=== PATIENT | male | born 1935 | race Caucasian/White ===

== ENCOUNTER 2016-12-02 19:32 | Emergency (ER) | payer MEDICARE, BC, OTHER ==
--- NOTE | 2016-12-02 19:43 | EDM.PDOC ---
ED HISTORY OF PRESENT ILLNESS - General Chief Complaint: Respiratory Problem Stated Complaint: SOB DIARRHEA Time Seen by Provider: 12/02/16 19:41 - History of Present Illness INITIAL COMMENTS - FREE TEXT/NARRATIVE: 81-year-old male presents emergency room with increasing shortness of breath and some diarrhea. This started basically yesterday morning. Patient has a history of COPD. He is not aware of any fevers or chills has had no nausea or vomiting he has had 3-4 loose stools yesterday and again today. Beyond this he has no other complaints at this time. He has not had any chest pain or chest pressure he believes his cough is productive but having a hard time bringing stuff up. No nausea or vomiting. - Related Data Allergies/ADRs: Allergies Allergy/AdvReac Type Severity Reaction Status Date / Time No Known Allergies Allergy Verified 12/02/16 19:44 Home Meds: Home Meds Allopurinol [Zyloprim] 300 mg PO DAILY 12/02/16 [History] Aspirin [Lo-Dose Aspirin EC] 81 mg PO DAILY 12/02/16 [History] Cholecalciferol (Vitamin D3) [Vitamin D3] 1,000 unit PO DAILY 12/02/16 [History] Doxycycline [Vibramycin] 100 mg PO BID #13 cap 12/02/16 [Rx] Losartan [Cozaar] 100 mg PO DAILY 12/02/16 [History] Metoprolol Succinate [Toprol XL 100mg] 100 mg PO BID 12/02/16 [History] Omeprazole 20 mg PO DAILY 12/02/16 [History] Oseltamivir [Tamiflu] 75 mg PO DAILY #4 cap 12/02/16 [Rx] atorvaSTATin [Lipitor] 40 mg PO BEDTIME 12/02/16 [History] predniSONE [Prednisone] 40 mg PO Q24H #8 tablet 12/02/16 [Rx] ED ROS GENERAL - Review of Systems Review Of Systems: See Below Constitutional: Reports: no symptoms. Denies: fever, chills HEENT: Reports: No symptoms Respiratory: Reports: shortness of breath, cough. Denies: sputum Cardiovascular: Reports: No symptoms, Dyspnea on exertion. Denies: Chest pain GI/Abdominal: Reports: Diarrhea. Denies: Abdominal pain, Constipation, Nausea, Vomiting : Reports: no symptoms Skin: Reports: no symptoms Neurological: Reports: no symptoms ED EXAM, GENERAL - Physical Exam Exam: See Below Exam Limited By: No limitations General Appearance: alert, no apparent distress Eye Exam: bilateral eye: normal inspection Head: atraumatic, normocephalic Neck: normal inspection, supple, non-tender, full range of motion Respiratory/Chest: no respiratory distress, lungs clear, decreased breath sounds Cardiovascular: regular rate, rhythm, no edema, no murmur GI/Abdominal: normal bowel sounds, soft, non tender, no organomegaly, no distention, no abnormal bruit, no mass Back Exam: normal inspection. No: CVA tenderness (L), CVA tenderness (R) Extremities: normal inspection, no pedal edema EKG INTERPRETATION EKG Date: 12/02/16 Rhythm: NSR [place]: normal P-wave: present QRS: other (nondiagnostic ST depression lateral) ST-T: normal QT: normal Comparison: NA - no prior EKG EKG Interpretation Comments: Borderline EKG. No comparison. No acute changes on chest x-ray. Patient received 2 breathing treatments and this helped significantly he was also given 80 mg of Solu-Medrol with his underlying COPD. He was instructed on use of an albuterol MDI and did well with this and he wants to go home. Course - Vital Signs Last Recorded V/S: Last Vital Signs Temp 36.3 C 12/02/16 19:39 Pulse 92 12/02/16 19:39 Resp 24 H 12/02/16 19:39 BP 177/144 H 12/02/16 19:39 Pulse Ox 99 12/02/16 20:46 - Orders/Labs/Meds Orders: Active Orders 24 hr Category Date Time Status EKG Documentation Completion [RC] STAT Care 12/02/16 19:55 Active RT Aerosol Therapy [RC] ASDIRECTED Care 12/02/16 19:54 Active RT Aerosol Therapy [RC] ASDIRECTED Care 12/02/16 20:46 Active RT Post Treatment Assessment [RC] Click To Edit Care 12/02/16 21:31 Active RT Pre-Treatment Assessment [RC] Click To Edit Care 12/02/16 21:31 Active Chest 1V Frontal [CR] Stat Exams 12/02/16 19:54 Taken Lactated Ringers [Ringers, Lactated] 1,000 ml Med 12/02/16 20:00 Active IV ASDIRECTED Medication Orders Lactated Ringer's (Ringers, Lactated) 1,000 mls @ 125 mls/hr IV ASDIRECTED VICKY Last Admin: 12/02/16 20:17 Dose: 125 mls/hr Labs: Laboratory Tests 12/02/16 12/02/16 12/02/16 Range/Units 20:04 20:04 20:04 WBC 9.40 H (4.23-9.07) K/mm3 RBC 3.57 L (4.63-6.08) M/mm3 Hgb 11.6 L (13.7-17.5) gm/L Hct 35.0 L (40.1-51.0) % MCV 98.0 H (79.0-92.2) fl MCH 32.5 H (25.7-32.2) pg MCHC 33.1 (32.2-35.5) g/dl RDW Std Deviation 48.1 H (35.1-43.9) fL Plt Count 155 L (163-337) K/mm3 MPV 11.8 (9.4-12.3) fl Neutrophils % (Manual) 91 H (40-60) % Band Neutrophils % 0 (0-10) % Lymphocytes % (Manual) 4 L (20-40) % Atypical Lymphs % 0 % Monocytes % (Manual) 5 (2-10) % Eosinophils % (Manual) 0 L (0.8-7.0) % Basophils % (Manual) 0 L (0.2-1.2) Platelet Estimate Adequate Plt Morphology Comment See note RBC Morph Comment Normal Sodium 134 L (136-145) mEq/L Potassium 4.4 (3.5-5.1) mEq/L Chloride 100 (98-107) mEq/L Carbon Dioxide 21 (21-32) mEq/L Anion Gap 17.4 H (5-15) BUN 41 H (7-18) mg/dL Creatinine 1.6 H (0.7-1.3) mg/dL Est Cr Clr Drug Dosing 28.65 mL/min Estimated GFR (MDRD) 42 (>60) mL/min BUN/Creatinine Ratio 25.6 H (14-18) Glucose 119 H (83-115) mg/dL Calcium 9.1 (8.5-10.1) mg/dL Total Bilirubin 0.3 (0.2-1.0) mg/dL AST 47 H (15-37) U/L ALT 43 (16-63) U/L Alkaline Phosphatase 73 (46-116) U/L B-Natriuretic Peptide 834 H (0-100) pg/mL Total Protein 7.3 (6.4-8.2) g/dl Albumin 3.7 (3.4-5.0) g/dl Globulin 3.6 gm/dL Albumin/Globulin Ratio 1.0 (1-2) Urine Color (Yellow) Urine Appearance (Clear) Urine pH (5.0-8.0) Ur Specific [place] (1.005-1.030) Urine Protein (Negative) Urine Glucose (UA) (Negative) Urine Ketones (Negative) Urine Occult Blood (Negative) Urine Nitrite (Negative) Urine Bilirubin (Negative) Urine Urobilinogen (0.2-1.0) Ur Leukocyte Esterase (Negative) Urine RBC (0-5) /hpf Urine WBC (0-5) /hpf Ur Epithelial Cells (0-5) /hpf Urine Bacteria (FEW) /hpf Urine Mucus (FEW) /hpf 12/02/16 Range/Units 20:50 WBC (4.23-9.07) K/mm3 RBC (4.63-6.08) M/mm3 Hgb (13.7-17.5) gm/L Hct (40.1-51.0) % MCV (79.0-92.2) fl MCH (25.7-32.2) pg MCHC (32.2-35.5) g/dl RDW Std Deviation (35.1-43.9) fL Plt Count (163-337) K/mm3 MPV (9.4-12.3) fl Neutrophils % (Manual) (40-60) % Band Neutrophils % (0-10) % Lymphocytes % (Manual) (20-40) % Atypical Lymphs % % Monocytes % (Manual) (2-10) % Eosinophils % (Manual) (0.8-7.0) % Basophils % (Manual) (0.2-1.2) Platelet Estimate Plt Morphology Comment RBC Morph Comment Sodium (136-145) mEq/L Potassium (3.5-5.1) mEq/L Chloride (98-107) mEq/L Carbon Dioxide (21-32) mEq/L Anion Gap (5-15) BUN (7-18) mg/dL Creatinine (0.7-1.3) mg/dL Est Cr Clr Drug Dosing mL/min Estimated GFR (MDRD) (>60) mL/min BUN/Creatinine Ratio (14-18) Glucose (83-115) mg/dL Calcium (8.5-10.1) mg/dL Total Bilirubin (0.2-1.0) mg/dL AST (15-37) U/L ALT (16-63) U/L Alkaline Phosphatase (46-116) U/L B-Natriuretic Peptide (0-100) pg/mL Total Protein (6.4-8.2) g/dl Albumin (3.4-5.0) g/dl Globulin gm/dL Albumin/Globulin Ratio (1-2) Urine Color Yellow (Yellow) Urine Appearance Clear (Clear) Urine pH 6.0 (5.0-8.0) Ur Specific [place] 1.025 (1.005-1.030) Urine Protein 2+ H (Negative) Urine Glucose (UA) Negative (Negative) Urine Ketones Negative (Negative) Urine Occult Blood 2+ H (Negative) Urine Nitrite Negative (Negative) Urine Bilirubin Negative (Negative) Urine Urobilinogen 0.2 (0.2-1.0) Ur Leukocyte Esterase Negative (Negative) Urine RBC 0-5 (0-5) /hpf Urine WBC Not seen (0-5) /hpf Ur Epithelial Cells 0-5 (0-5) /hpf Urine Bacteria Rare (FEW) /hpf Urine Mucus Few (FEW) /hpf Meds: Medications Generic Name Dose Route Start Last Admin Trade Name Freq PRN Reason Stop Dose Admin Lactated Ringer's 1,000 mls @ 125 mls/hr 12/02/16 20:00 12/02/16 20:17 Ringers, Lactated IV 125 mls/hr ASDIRECTED VICKY Administration Discontinued Medications Generic Name Dose Route Start Last Admin Trade Name Freq PRN Reason Stop Dose Admin Albuterol 6 gm 12/02/16 21:31 12/02/16 21:51 Proventil Hfa INH 12/02/16 21:32 2 puff ONETIME ONE Administration Albuterol/Ipratropium 3 ml 12/02/16 19:53 12/02/16 20:05 Duoneb 3.0-0.5 Mg/3 Ml NEB 12/02/16 19:54 3 ml ONETIME ONE Administration Albuterol/Ipratropium 3 ml 12/02/16 20:45 12/02/16 21:06 Duoneb 3.0-0.5 Mg/3 Ml NEB 12/02/16 20:46 3 ml ONETIME ONE Administration Methylprednisolone Sodium Succinate 80 mg 12/02/16 20:45 12/02/16 20:58 Solu-Medrol IVPUSH 12/02/16 20:46 80 mg ONETIME ONE Administration Oseltamivir Phosphate 75 mg 12/02/16 20:45 12/02/16 20:58 Tamiflu PO 12/02/16 20:46 75 mg ONETIME ONE Administration - Re-Assessments/Exams Free Text/Narrative Re-Assessment/Exam: 12/02/16 20:47 chest X. ray is negative for acute cardiopulmonary changes he has some age- related changes. He is positive for influenza A. due to his renal insufficiency he will be started on 75 mg once daily for 5 days. He had a modest if any improvement from the DuoNeb therapy this will be repeated and he'll receive 80 mg of Solu-Medrol.he has been started on Tamiflu 75 mg daily because of his renal insufficiency he'll stay on daily dosing. We will also add doxycycline 100 mg twice a day for 7 days. He has been instructed on the use of an albuterol MDI and believes this is helping, he will take 2 puffs every 4 hours while awake. Departure - Departure Time of Disposition: 22:50 Disposition: Home, Self-Care 01 Clinical Impression: Influenza A, Bronchitis, COPD exacerbation Prescriptions: Doxycycline [Vibramycin] 100 mg PO BID #13 cap Oseltamivir [Tamiflu] 75 mg PO DAILY #4 cap predniSONE [Prednisone] 40 mg PO Q24H #8 tablet Forms: ED Department Discharge Additional Instructions: Return to emergency room if any questions or problems return with any worsening symptoms. It looks like you have an early case of the flu with a significant cough. You've been started on Tamiflu this is the flu medication you will take this once daily in the evenings until all gone. You had been started on doxycycline this is an antibiotic take it twice daily until all gone your first dose was given in the emergency room start tomorrow morning. You have been started on a steroid continue prednisone 40 mg every morning until gone. In the emergency room your given a albuterol inhaler use this 2 puffs every 4 hours while awake. Followup in the clinic in 2-3 days if not significantly better. [phone] - My Orders Last 24 Hours: My Active Orders 12/02/16 19:54 RT Aerosol Therapy [RC] ASDIRECTED Chest 1V Frontal [CR] Stat 12/02/16 19:55 EKG Documentation Completion [RC] STAT 12/02/16 20:00 Lactated Ringers [Ringers, Lactated] 1,000 ml IV ASDIRECTED 12/02/16 20:46 RT Aerosol Therapy [RC] ASDIRECTED 12/02/16 21:31 RT Post Treatment Assessment [RC] Click To Edit RT Pre-Treatment Assessment [RC] Click To Edit - Assessment/Plan Last 24 Hours: My Active Orders 12/02/16 19:54 RT Aerosol Therapy [RC] ASDIRECTED Chest 1V Frontal [CR] Stat 12/02/16 19:55 EKG Documentation Completion [RC] STAT 12/02/16 20:00 Lactated Ringers [Ringers, Lactated] 1,000 ml IV ASDIRECTED 12/02/16 20:46 RT Aerosol Therapy [RC] ASDIRECTED 12/02/16 21:31 RT Post Treatment Assessment [RC] Click To Edit RT Pre-Treatment Assessment [RC] Click To Edit
[2016-12-02 19:44] VITALS: BP 177/144
[2016-12-02] MEDS ORDERED: Albuterol/Ipratropium 3.0-0.5 MG/3 ML Neb Soln NEB ONE ×2 (19:53→20:45)
[2016-12-02] MEDS ORDERED: Lactated Ringers 1,000 ML IV SCH (20:00)
[2016-12-02] MEDS ORDERED: methylPREDNISolone Sodium Succinate 125 MG/2 ML SDV IVPUSH ONE (20:45)
[2016-12-02] MEDS ORDERED: Oseltamivir 75 MG Cap PO ONE (20:45)
[2016-12-02] MEDS ORDERED: Albuterol 6.7 GM Inhaler INH ONE (21:31)
[2016-12-02] MEDS ORDERED: Doxycycline 100 MG Cap PO ONE (22:53)
--- NOTE | 2016-12-03 08:08 | CR ---
Chest: Portable view of the chest was obtained. Comparison: No previous study. Heart size and mediastinum are normal. Lungs are clear with no acute infiltrates. Previous sternotomy is noted. Previous right shoulder surgery is noted. Impression: 1. Nothing acute is identified on portable chest x-ray. Diagnostic code #2
== END 2016-12-02 23:22 | disposition home or self-care (01) ==
LOC: JD.ED 19:32
DX: J44.0 Chronic obstructive pulmonary disease with (acute) lower respiratory infection (principal); J20.9 Acute bronchitis, unspecified; J44.1 Chronic obstructive pulmonary disease with (acute) exacerbation; J11.1 Influenza due to unidentified influenza virus with other respiratory manifestations; R19.7 Diarrhea, unspecified; Z79.82 Long term (current) use of aspirin; Z79.899 Other long term (current) drug therapy
CPT/HCPCS: 36415; 71010; 80053; 81001; 83880; 85025; 87804; 93005; 94640; 94664; 96361; 96374; 99285; A9270; J2930; J7120; 99284

== ENCOUNTER 2016-12-06 09:00 | Inpatient (IN) | payer MEDICARE, BC, OTHER ==
--- NOTE | 2016-12-06 09:54 | EDM.PDOC ---
ED UPPER BACK/NECK PAIN/INJURY - General Chief Complaint: Back Pain or Injury Stated Complaint: LOWER BACK PAIN, NOT SLEEPING Time Seen by Provider: 12/06/16 09:43 Source of Information: Reports: Patient, Family (daughter) History Limitations: Reports: Altered mental status (confused and disoriented) - History of Present Illness INITIAL COMMENTS - FREE TEXT/NARRATIVE: 81-year-old male presents to the ED in the integument of his daughter who cares for him. Patient was in the ED on December 02 and was diagnosed with influenza type A. He has COPD and mild dementia. Daughter comments that she's been extremely confused and hallucinating the last 3 days. He's been found outside the home twice out at nighttime. Is oriented to person place and time. He has completed the Tamiflu which was 11 tablet of 75 mg date daily due to his renal disease. His steroids were withheld this morning. He was placed on 40 mg daily. She appreciates that he is having increased coughing increased trouble breathing. O2 sats were 86% upon arrival and into the 95% on 3 L by nasal cannula. Still coughing up but not bringing much phlegm. Has had very little to eat or drink the last few days. Still running a low-grade fever but better than it was. He is complaining of low back pain is unclear if he may have fallen while he was outside of the home the last few days. Symptom Onset Date: 12/02/16 (seemed to get worse after starting Tamiflu tablets.) Timing/Duration: Reports: Day(s):, Constant, Getting worse, Gradual onset Location: Reports: lower (diffuse low back pain but is nonspecific as to where her or what hurts.) Quality: Reports: Other (low-grade fever.) Severity: moderate Place of Occurrence: home (moderate to marked confusion.) Improves with: Reports: None Worsens with: Reports: None, Movement (more short of breath on exertion.) Context: Denies: lifting, bending, fall, MVC, trauma, chronic pain/injury, sports injury, other Associated Symptoms: Reports: Cough, Difficulty walking ( nothing greater than 102.), Fever/chills (initially complained of headachefever and chills initially but), Headache, Loss of appetite, Malaise, Shortness of breath, Weakness. 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, Breathing treatments (he was started on albuterol metered-dose inhaler but is difficult to ascertain if it is beneficial or not as he has difficulty coordinating the inhaler) - Related Data Allergies/ADRs: Allergies Allergy/AdvReac Type Severity Reaction Status Date / Time tramadol Allergy Hallucinati Verified 12/06/16 09:28 ons Home Meds: Home Meds Allopurinol [Zyloprim] 300 mg PO DAILY 12/02/16 [History] Aspirin [Lo-Dose Aspirin EC] 81 mg PO DAILY 12/02/16 [History] Cholecalciferol (Vitamin D3) [Vitamin D3] 1,000 unit PO DAILY 12/02/16 [History] Doxycycline [Vibramycin] 100 mg PO BID #13 cap 12/02/16 [Rx] Losartan [Cozaar] 100 mg PO DAILY 12/02/16 [History] Metoprolol Succinate [Toprol XL 100mg] 100 mg PO BID 12/02/16 [History] Omeprazole 20 mg PO DAILY 12/02/16 [History] Oseltamivir [Tamiflu] 75 mg PO DAILY #4 cap 12/02/16 [Rx] atorvaSTATin [Lipitor] 40 mg PO BEDTIME 12/02/16 [History] predniSONE [Prednisone] 40 mg PO Q24H #8 tablet 12/02/16 [Rx] Past Medical History HEENT History: Reports: Other (see below) Other HEENT History: wears glasses Cardiovascular History: Reports: High cholesterol, Hypertension, MA Respiratory History: Reports: Bronchitis, recurrent, COPD Gastrointestinal History: Reports: GERD Musculoskeletal History: Reports: Back pain, chronic Neurological History: Reports: Other (see below) Other Neuro History: dementia. Endocrine/Metabolic History: Reports: Diabetes, type II, Other (see below) Other Endocrine/Metabolic History: diet controlled. Oncologic (Cancer) History: Reports: Basal cell carcinoma Dermatologic History: Reports: Other (see below) Other Dermatologic History: basal cell CA to back. - Infectious Disease History Infectious Disease History: Reports: Other (see below) Other Infectious Disease History: daughter states pt "got hepatitis" while in hospital with a broken back, unsure if A,B, or C. - Past Surgical History Cardiovascular Surgical History: Reports: Coronary artery bypass Musculoskeletal Surgical History: Reports: Knee replacement, Other (see below) Other Musculoskeletal Surgeries/Procedures:: several spinal fusions. Social & Family History - Tobacco Use Smoking Status *Q: Current Every Day Smoker Years of Tobacco use: 60 Packs/Tins Daily: 2 - Caffeine Use Caffeine Use: Reports: Coffee - Recreational Drug Use Recreational Drug Use: No - Living Situation & Occupation Living situation: Reports: , with family Occupation: retired (of his daughters lives with him.) ED ROS GENERAL - Review of Systems Review Of Systems: See Below Constitutional: Reports: fever, malaise, weakness, fatigue, decreased appetite, weight loss HEENT: Reports: Hearing loss (as upper or lower dentures.mild hearing loss), Vision change (poor vision right eye.), Other. Denies: Contact Lenses, Dental pain Respiratory: Reports: shortness of breath (at rest), wheezing, cough. Denies: sputum (cough but nonproductive.), hemoptysis Cardiovascular: Reports: Blood pressure problem, Dyspnea on exertion. Denies: Chest pain, Claudication (chronic hypertension), Orthopnea, Palpitations Endocrine: Reports: fatigue GI/Abdominal: Reports: Decreased appetite, Distension. Denies: Difficulty swallowing, Flatus, Hematemesis (as noted in the upper abdomen.), Hematochezia, Melena, Nausea, Vomiting : Reports: frequency, other (a chair usually x3 or 4) Musculoskeletal: Reports: neck pain (tonic neck pain), back pain (chronic low back pain), muscle pain (generalized myalgia but getting better.) Skin: Reports: no symptoms Neurological: Reports: confusion (known to have mild organic brain disease early dementia.), headache, difficulty walking, weakness. Denies: dizziness, numbness (complained of a headache on Friday.), paresthesia (required some help from his daughter.), pre-existing deficit, seizure, syncope, tingling, tremors, trouble speaking, change in speech, gait disturbance Psychiatric: Reports: Agitation, Confusion (mild agitation at times), Hallucinations (actively hallucinating the last 3 days. Worse at night.) Hematologic/Lymphatic: Reports: no symptoms Immunologic: Reports: no symptoms ED EXAM, UPPER BACK/NECK PAIN - Physical Exam Exam: See Below Exam Limited By: Altered mental status (patient is really not able to provide any useful history history was gleaned from the daughter who accompanies him to the ED.) General Appearance: no apparent distress, other (he does not feel warm to palpation at this time) Eye Exam: bilateral eye: normal inspection (no jaundice) Ears Exam: normal TMs Throat/Mouth Exam: Normal inspection, Normal oropharynx, Other (tongue is extremely dry and coated. He is upper lower dentures.) Head Exam: atraumatic, normocephalic Neck Exam: non-tender, normal alignment, normal inspection, limited range of motion (crepitus on lateral rotation.), tenderness (laterally bilaterally.). No : full range of motion, stiff neck Cardiovascular/Respiratory: regular rate, rhythm, no JVD, decreased pulses (to his feet.), wheezing, other (he is in respiratory distress with tachypnea 24-20 per minute an O2 sats of only 86% upon arrival. Prove to 9495% on 2 L per minute. He is not on oxygen at home.) GI/Abdominal: distended, abnormal bowel sounds: (tympany to percussion in the upper abdomen compatible with aerophagia.mildly hyperactive.). No: rigid, rebound, tender (Male) Exam: No hernia Back Exam: normal inspection, other (no abrasions or contusions over the lower lumbar spine or). No: CVA tenderness (L), CVA tenderness (R) Extremities: normal inspection ( mid thoracic spine.), normal range of motion, no pedal edema, normal capillary refill. 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 No: oriented x 3 DTR: 0: achilles (R), achilles (L), 1+: bicep (R), bicep (L), patella (R), patella (L) Skin Exam: Normal color, Warm/dry EKG INTERPRETATION EKG Date: 12/06/16 Rhythm: other Course - Vital Signs Last Recorded V/S: Last Vital Signs Temp 36.6 C 12/06/16 11:29 Pulse 76 12/06/16 11:29 Resp 22 H 12/06/16 11:29 BP 142/60 H 12/06/16 11:29 Pulse Ox 98 12/06/16 11:29 - Orders/Labs/Meds Orders: Active Orders 24 hr Category Date Time Status Admission Status [Patient Status] [ADT] Routine ADT 12/06/16 12:35 Ordered EKG Documentation Completion [RC] STAT Care 12/06/16 09:57 Active RT Aerosol Therapy [RC] ASDIRECTED Care 12/06/16 10:01 Active Lumbar Spine 2 or 3V [CR] Stat Exams 12/06/16 11:37 Taken Levofloxacin/Dextrose 5%-Water [Levaquin in D5W 750 MG/ Med 12/06/16 12:41 Ordered 150 ML] 750 mg Premix Bag 1 bag IV ONETIME Sodium Chloride 0.9% [Normal Saline] 1,000 ml Med 12/06/16 10:15 Active IV ASDIRECTED Medication Orders Sodium Chloride (Normal Saline) 1,000 mls @ 100 mls/hr IV ASDIRECTED VICKY Last Admin: 12/06/16 10:40 Dose: 100 mls/hr Labs: Laboratory Tests 12/06/16 12/06/16 12/06/16 Range/Units 09:59 10:11 10:11 WBC 13.15 H (4.23-9.07) K/mm3 RBC 3.71 L (4.63-6.08) M/mm3 Hgb 12.0 L (13.7-17.5) gm/L Hct 36.5 L (40.1-51.0) % MCV 98.4 H (79.0-92.2) fl MCH 32.3 H (25.7-32.2) pg MCHC 32.9 (32.2-35.5) g/dl RDW Std Deviation 48.5 H (35.1-43.9) fL Plt Count 208 (163-337) K/mm3 MPV 10.4 (9.4-12.3) fl Neutrophils % (Manual) 84 H (40-60) % Band Neutrophils % 1 (0-10) % Lymphocytes % (Manual) 10 L (20-40) % Atypical Lymphs % 0 % Monocytes % (Manual) 4 (2-10) % Eosinophils % (Manual) 1 (0.8-7.0) % Basophils % (Manual) 0 L (0.2-1.2) Platelet Estimate Adequate Poikilocytosis 1+ slight Anisocytosis 1+ slight RBC Morph Comment Not Reportable Puncture Site Rt radial ABG pH 7.42 (7.35-7.45) ABG pCO2 40.0 (35.0-45.0) mmHg ABG pO2 81.0 (80.0-100.0) mmHg ABG HCO3 25.9 (22.0-26.0) meq/L ABG O2 Saturation 96.0 (96.0-97.0) % ABG Base Excess 1.3 (-2-2.0) Pratik Test Positive A-a Gradient 69 mmHg O2 Delivery Device Nasal cannula Oxygen Flow Rate 2.0 FiO2 28.00 (21.00-100.00) % Sodium 140 (136-145) mEq/L Potassium 4.2 (3.5-5.1) mEq/L Chloride 104 (98-107) mEq/L Carbon Dioxide 26 (21-32) mEq/L Anion Gap 14.2 (5-15) BUN 41 H (7-18) mg/dL Creatinine 1.5 H (0.7-1.3) mg/dL Est Cr Clr Drug Dosing TNP Estimated GFR (MDRD) 45 (>60) mL/min BUN/Creatinine Ratio 27.3 H (14-18) Glucose 105 (83-115) mg/dL Calcium 9.8 (8.5-10.1) mg/dL Magnesium 2.0 (1.8-2.4) mg/dl Total Bilirubin 0.5 (0.2-1.0) mg/dL AST 71 H (15-37) U/L ALT 72 H (16-63) U/L Alkaline Phosphatase 79 (46-116) U/L CK-MB (CK-2) 10.9 H (0-3.6) ng/ml Troponin I 0.187 H* (0.00-0.056) ng/mL C-Reactive Protein 7.4 H* (<1.0) mg/dL B-Natriuretic Peptide (0-100) pg/mL Total Protein 7.3 (6.4-8.2) g/dl Albumin 3.6 (3.4-5.0) g/dl Globulin 3.7 gm/dL Albumin/Globulin Ratio 1.0 (1-2) Urine Color (Yellow) Urine Appearance (Clear) Urine pH (5.0-8.0) Ur Specific [place] (1.005-1.030) Urine Protein (Negative) Urine Glucose (UA) (Negative) Urine Ketones (Negative) Urine Occult Blood (Negative) Urine Nitrite (Negative) Urine Bilirubin (Negative) Urine Urobilinogen (0.2-1.0) Ur Leukocyte Esterase (Negative) Urine RBC (0-5) /hpf Urine WBC (0-5) /hpf Ur Squamous Epith Cells (0-5) /hpf Urine Bacteria (FEW) /hpf Hyaline Casts (0-5) /lpf Urine Mucus (FEW) /hpf 12/06/16 12/06/16 Range/Units 10:11 12:05 WBC (4.23-9.07) K/mm3 RBC (4.63-6.08) M/mm3 Hgb (13.7-17.5) gm/L Hct (40.1-51.0) % MCV (79.0-92.2) fl MCH (25.7-32.2) pg MCHC (32.2-35.5) g/dl RDW Std Deviation (35.1-43.9) fL Plt Count (163-337) K/mm3 MPV (9.4-12.3) fl Neutrophils % (Manual) (40-60) % Band Neutrophils % (0-10) % Lymphocytes % (Manual) (20-40) % Atypical Lymphs % % Monocytes % (Manual) (2-10) % Eosinophils % (Manual) (0.8-7.0) % Basophils % (Manual) (0.2-1.2) Platelet Estimate Poikilocytosis Anisocytosis RBC Morph Comment Puncture Site ABG pH (7.35-7.45) ABG pCO2 (35.0-45.0) mmHg ABG pO2 (80.0-100.0) mmHg ABG HCO3 (22.0-26.0) meq/L ABG O2 Saturation (96.0-97.0) % ABG Base Excess (-2-2.0) Pratik Test A-a Gradient mmHg O2 Delivery Device Oxygen Flow Rate FiO2 (21.00-100.00) % Sodium (136-145) mEq/L Potassium (3.5-5.1) mEq/L Chloride (98-107) mEq/L Carbon Dioxide (21-32) mEq/L Anion Gap (5-15) BUN (7-18) mg/dL Creatinine (0.7-1.3) mg/dL Est Cr Clr Drug Dosing Estimated GFR (MDRD) (>60) mL/min BUN/Creatinine Ratio (14-18) Glucose (83-115) mg/dL Calcium (8.5-10.1) mg/dL Magnesium (1.8-2.4) mg/dl Total Bilirubin (0.2-1.0) mg/dL AST (15-37) U/L ALT (16-63) U/L Alkaline Phosphatase (46-116) U/L CK-MB (CK-2) (0-3.6) ng/ml Troponin I (0.00-0.056) ng/mL C-Reactive Protein (<1.0) mg/dL B-Natriuretic Peptide 595 H (0-100) pg/mL Total Protein (6.4-8.2) g/dl Albumin (3.4-5.0) g/dl Globulin gm/dL Albumin/Globulin Ratio (1-2) Urine Color Light yellow (Yellow) Urine Appearance Clear (Clear) Urine pH 6.0 (5.0-8.0) Ur Specific [place] 1.020 (1.005-1.030) Urine Protein 2+ H (Negative) Urine Glucose (UA) Negative (Negative) Urine Ketones Negative (Negative) Urine Occult Blood Trace-lysed H (Negative) Urine Nitrite Negative (Negative) Urine Bilirubin Negative (Negative) Urine Urobilinogen 0.2 (0.2-1.0) Ur Leukocyte Esterase Negative (Negative) Urine RBC Not seen (0-5) /hpf Urine WBC 0-5 (0-5) /hpf Ur Squamous Epith Cells Not seen (0-5) /hpf Urine Bacteria Rare (FEW) /hpf Hyaline Casts 0-5 (0-5) /lpf Urine Mucus Not seen (FEW) /hpf Meds: Medications Generic Name Dose Route Start Last Admin Trade Name Freq PRN Reason Stop Dose Admin Sodium Chloride 1,000 mls @ 100 mls/hr 12/06/16 10:15 12/06/16 10:40 Normal Saline IV 100 mls/hr ASDIRECTED VICKY Administration Discontinued Medications Generic Name Dose Route Start Last Admin Trade Name Freq PRN Reason Stop Dose Admin Albuterol/Ipratropium 3 ml 12/06/16 10:00 12/06/16 10:10 Duoneb 3.0-0.5 Mg/3 Ml NEB 12/06/16 10:01 3 ml ONETIME ONE Administration Furosemide 40 mg 12/06/16 11:11 12/06/16 11:28 Lasix IVPUSH 12/06/16 11:12 40 mg NOW ONE Administration - Radiology Interpretation Free Text/Narrative:: 81-year-old male presents to the ED in the complement of his daughter. He was seen through the ED on December 02 and diagnosed with influenza type A. Due to his renal function he was started on Tamiflu 75 mg once daily only for 5 days. He has completed this therapy. Was also started on 40 mg of prednisone daily in the dosage was continued up until yesterday. Today's dose has been withheld. Patient has developed increased hallucinations and completely disoriented [address] and time over the last 3 days. He has left the home on 2 occasions and been found outside of the home once in the pickup truck sitting in the truck talking to his daughter in [place]. Done in [place] called back the daughter who is living with him at this time et cetera. Been difficult to get anything to eat or drink and into him. He had pre- existing mild dementia prior to illness and seems to have been aggravated by Tamiflu illness and perhaps the steroids. At rest he has marked tachypnea and his lungs sound wet with rales stroke lung roberts and diffuse wheezes. He appears to have a low-grade fever at this time. Plan chest x-ray one view labs to include troponin and CK-MB fractions and BNP as I think he's in failure. Peripheral IV at 100 mils an hour of normal saline. Will require oxygen at 2-3 L per minute by nasal spectrum keep his O2 sats above 94%. - Re-Assessments/Exams Free Text/Narrative Re-Assessment/Exam: 12/06/16 11:07chest x-ray reveals mildly hyperinflated lung roberts. Borderline cardiomegaly. Diffuse vascular congestion with slight blunting of the costophrenic angles bilaterally. ECG shows sinus rhythm at 72 per minute occasional PACs. Q waves noted in V1 V2 compatible with an old anteroseptal myocardial infarction. There are also Q waves in leads 3 and aVF consider old inferior wall myocardial infarction. Consider left atrial hypertrophy pattern. QT is mildly prolonged. Abnormal ECG. 12/06/16 11:11 Labs are back showing an elevated white count at 13.15 with a left shift of 84% neutrophils 1% bands and 10% lymphocytes. Hemoglobin is 12.0 hematocrit is 36.5. Platelets 208,000. His ABGs revealed a pH of 7.42 PCO2 is 40 PO2 of 81 on 2 L per minute by nasal cannula. Chemistry shows a sodium of 140 and potassium of 4.2. Toward 1044 bicarbonate is 26. Anion gap is normal at 14.2 creatinine is 1.5 mildly elevated BUN is 41 mildly elevated EGFR is 45. AST mildly elevated at 71 ALT mildly elevated at 72. CRP markedly elevated at 7.4 BNP elevated at 595 troponin is 0.187 CK-MB fraction is 10.9 suggesting recent myocardial infarction. He will be given Lasix 40 mg IV due to the elevated BNP. Will also give Levaquin 750 mg IV. Note note the urinalysis has not yet been collected. 12/06/16 11:56 spoke with patient and his daughter about his elevated cardiac enzymes and that he may well have had a recent myocardial infarction. They indicate that they are not interested in going to [place] for further cardiology assessment in this regard. X-rays of his lumbar spine are yet to be done. I will then contact Dr. Gallo vocational rehabilitation administrator hospitalist with a view to admission to the hospital. 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 There is no evidence of compression fracture. Aorta is well outlined with calcification without aneurysmal dilatation.his prognosis is extremely guarded with that clinical evidence of recent non-ST elevated myocardial infarction and exacerbation of heart failure compounded by suspect underlying infective process and confirmed influenza A with exacerbation of COPD causing hypoxemia. 12/06/16 12:36 Spoke with the vocational rehabilitation administrator hospitalist Dr. Gallo and she will attend the patient in the ED. Departure - Departure Time of Disposition: 12:42 Disposition: Admitted As Inpatient 65 Condition: critical Clinical Impression: Acute hyperactive delirium due to another medical condition, Hypoxia, Influenza A, Elevated troponin I level, NSTEMI (non-ST elevated myocardial infarction), Adverse effects of medication Congestive heart failure Qualifiers: Congestive heart failure type: diastolic Congestive heart failure chronicity: acute on chronic Qualified Code(s): I50.33 - Acute on chronic diastolic ( congestive) heart failure COPD (chronic obstructive pulmonary disease) Qualifiers: COPD type: COPD with acute exacerbation Qualified Code(s): J44.1 - Chronic obstructive pulmonary disease with (acute) exacerbation Forms: ED Department Discharge - My Orders Last 24 Hours: My Active Orders 12/06/16 09:57 EKG Documentation Completion [RC] STAT 12/06/16 10:01 RT Aerosol Therapy [RC] ASDIRECTED 12/06/16 10:15 Sodium Chloride 0.9% [Normal Saline] 1,000 ml IV ASDIRECTED 12/06/16 11:37 Lumbar Spine 2 or 3V [CR] Stat 12/06/16 12:35 Admission Status [Patient Status] [ADT] Routine 12/06/16 12:41 Levofloxacin/Dextrose 5%-Water [Levaquin in D5W 750 MG/150 ML] 750 mg Premix Bag 1 bag IV ONETIME - Assessment/Plan Last 24 Hours: My Active Orders 12/06/16 09:57 EKG Documentation Completion [RC] STAT 12/06/16 10:01 RT Aerosol Therapy [RC] ASDIRECTED 12/06/16 10:15 Sodium Chloride 0.9% [Normal Saline] 1,000 ml IV ASDIRECTED 12/06/16 11:37 Lumbar Spine 2 or 3V [CR] Stat 12/06/16 12:35 Admission Status [Patient Status] [ADT] Routine 12/06/16 12:41 Levofloxacin/Dextrose 5%-Water [Levaquin in D5W 750 MG/150 ML] 750 mg Premix Bag 1 bag IV ONETIME
[2016-12-06] MEDS ORDERED: Albuterol/Ipratropium 3.0-0.5 MG/3 ML Neb Soln NEB ONE (10:00)
[2016-12-06] MEDS ORDERED: Sodium Chloride 0.9% 1,000 ML IV SCH (10:15)
--- NOTE | 2016-12-06 10:43 | CR ---
Chest: Portable view of the chest was obtained. Comparison: Previous chest x-ray of 12/02/16. Heart is enlarged but also accentuated from portable technique. Heart size does appear to be slightly more prominent than on previous portable exam. Lungs are clear with no acute infiltrates. Previous sternotomy is noted. Bony structures are grossly intact. Impression: 1. Heart size is accentuated from portable technique although heart size appears to be slightly larger than on prior chest x-ray. 2. Nothing acute is otherwise seen on portable chest x-ray. Diagnostic code #3
[2016-12-06] MEDS ORDERED: Furosemide 40 MG/4 ML VIAL IVPUSH ONE (11:11)
[2016-12-06] MEDS ORDERED: Levofloxacin/Dextrose 5%-Water 750 MG in Premix Bag 1 BAG IV ONE (12:41)
--- NOTE | 2016-12-06 13:28 | CR ---
Lumbar spine: AP, lateral and coned-down lateral views centered to the lumbosacral junction were obtained. Comparison: No previous exam. Endplate osteophytes are seen which appear to be bridging at L3-L4. Anterior osteophytes are noted at L1-L2 and L2-L3 as well as L5-S1 and L4-L5. Disc spaces are fairly well preserved with only minimal posterior narrowing seen throughout the lumbar spine. Pedicles as well as visualized transverse and spinous processes are intact. Mild joint space narrowing is seen within the left hip. Vascular calcification is noted. Bony exostosis noted off the superior acetabulum of the left hip presumably benign and incidental. Impression: 1. Degenerative change as noted above. Nothing acute is identified on three-view lumbar spine study. 2. Other incidental finding as noted above. Diagnostic code #2
[2016-12-06] MEDS ORDERED: Oseltamivir 30 MG Cap PO SCH (14:00)
[2016-12-06] MEDS ORDERED: Clopidogrel 75 MG Tab PO ONE (15:00)
[2016-12-06] MEDS ORDERED: Enoxaparin 30 MG/0.3 ML Syringe SUBCUT SCH (17:30)
[2016-12-06] MEDS: Nicotine 21 MG/24 Hr Patch TRDERM SCH (18:02)
--- NOTE | 2016-12-06 19:07 | PCM.HP ---
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 Additionally the patient had taken steorids , prednisone 40 mg daily as written ED staff at [facility]. He reportedly experienced AMS abruptly on the day he returned to the ED. Increasingly became more SOB with a dry cough; on arrival in the ED an O2 saturation was reported as 86% which increased to 95% on 3l/min. 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 Onset of Symptoms: Reports: unknown/unsure Duration of Symptoms: Reports: Day(s):, Getting worse Improves with: Reports: None Worsens with: Reports: None Context: Reports: sick contact Associated Symptoms: Reports: confusion, weakness - Related Data Allergies/Adverse Reactions: Allergies Allergy/AdvReac Type Severity Reaction Status Date / Time tramadol Allergy Hallucinati Verified 12/06/16 09:28 ons Home Medications: Home Meds Allopurinol [Zyloprim] 300 mg PO DAILY 12/02/16 [History] Aspirin [Lo-Dose Aspirin EC] 81 mg PO DAILY 12/02/16 [History] Cholecalciferol (Vitamin D3) [Vitamin D3] 1,000 unit PO DAILY 12/02/16 [History] Doxycycline [Vibramycin] 100 mg PO BID #13 cap 12/02/16 [Rx] Losartan [Cozaar] 100 mg PO DAILY 12/02/16 [History] Metoprolol Succinate [Toprol XL 100mg] 100 mg PO BID 12/02/16 [History] Omeprazole 20 mg PO DAILY 12/02/16 [History] Oseltamivir [Tamiflu] 75 mg PO DAILY #4 cap 12/02/16 [Rx] atorvaSTATin [Lipitor] 40 mg PO BEDTIME 12/02/16 [History] predniSONE [Prednisone] 40 mg PO Q24H #8 tablet 12/02/16 [Rx] Past Medical History HEENT History: Reports: Other (see below) Other HEENT History: wears glasses(currently not with pt) Cardiovascular History: Reports: High cholesterol, Hypertension, PA Respiratory History: Reports: Bronchitis, recurrent, COPD, SOB Gastrointestinal History: Reports: GERD Musculoskeletal History: Reports: Arthritis, Back pain, chronic Neurological History: Reports: Other (see below) Other Neuro History: dementia. Psychiatric History: Reports: Dementia Endocrine/Metabolic History: Reports: Diabetes, type II, Other (see below) Other Endocrine/Metabolic History: diet controlled. Oncologic (Cancer) History: Reports: Basal cell carcinoma Dermatologic History: Reports: Other (see below) Other Dermatologic History: basal cell CA to back. - Infectious Disease History Infectious Disease History: Reports: Influenza, Mumps Other Infectious Disease History: daughter states pt "got hepatitis" while in hospital with a broken back, unsure if A,B, or C. - Past Surgical History Cardiovascular Surgical History: Reports: Coronary artery bypass Musculoskeletal Surgical History: Reports: Knee replacement, Other (see below) Other Musculoskeletal Surgeries/Procedures:: several spinal fusions. Social & Family History - Tobacco Use Smoking Status *Q: Former Smoker Years of Tobacco use: 60 Packs/Tins Daily: 2 Used Tobacco, but Quit: No - Caffeine Use Caffeine Use: Reports: Coffee Other Caffeine Use: drinks coffee daily - Recreational Drug Use Recreational Drug Use: No - Living Situation & Occupation Living situation: Reports: , with family Occupation: retired (of his daughters lives with him.) H&P Review of Systems - Review of Systems: Review Of Systems: See Below General: Reports: fever, malaise, weakness, decreased appetite, weight loss HEENT: Reports: no symptoms Pulmonary: Reports: shortness of breath, wheezing, cough Cardiovascular: Reports: dyspnea on exertion Gastrointestinal: Reports: Decreased appetite Genitourinary: Reports: no symptoms Musculoskeletal: Reports: neck pain, back pain Skin: Reports: no symptoms Psychiatric: Reports: confusion, agitation, hallucinations Neurological: Reports: confusion, dizziness, headache, difficulty walking Hematologic/Lymphatic: Reports: no symptoms Immunologic: Reports: no symptoms Exam - Exam Exam: See Below - Vital Signs Vital Signs: Last Vital Signs Temp 36.2 C 12/06/16 16:17 Pulse 84 12/06/16 16:17 Resp 22 H 12/06/16 16:17 BP 151/68 H 12/06/16 16:17 Pulse Ox 96 12/06/16 16:17 Weight: 70.845 kg - Exam Quality Assessment: supplemental oxygen, DVT prophylaxis General: alert, oriented, cooperative HEENT: Conjunctiva clear, EACs clear, EOMI, Nares patent, Normal nasal septum, Pupils equal, Pupils reactive Neck: supple, trachea midline Lungs: Normal respiratory effort, Decreased breath sounds Cardiovascular: regular rate Abdomen: normal bowel sounds, soft (Male) Exam: Deferred Rectal (Males) Exam: Deferred Back Exam: normal inspection Extremities: normal pulses Skin: warm Neurological: cranial nerves intact Neuro Extensive - Mental Status: alert Neuro Extensive - Motor, Sensory, Reflexes: CN II-XII intact Psychiatric: alert - Patient Data Lab Results last 24 hrs: Laboratory Results - last 24 hr 12/06/16 Range/Units 16:10 Troponin I 0.182 H* (0.00-0.056) ng/mL Result Diagrams: 12/07/16 07:00 12/07/16 07:00 *Q Meaningful Use (ADM) - VTE *Q VTE Criteria *Q: - Stroke *Q Stroke Criteria *Q: - AMI *Q AMI Criteria *Q: - Problem List (1) Acute hyperactive delirium due to another medical condition SNOMED Code(s): 2761350, 421149463, 939928039 ICD Code: F05 - DELIRIUM DUE TO KNOWN PHYSIOLOGICAL CONDITION Status: Acute Current Visit: Yes (2) Adverse effects of medication SNOMED Code(s): 31926658 ICD Code: T88.7XXA - UNSP ADVERSE EFFECT OF DRUG OR MEDICAMENT, INIT ENCNTR Status: Acute Current Visit: Yes (3) COPD (chronic obstructive pulmonary disease) SNOMED Code(s): 15219741 ICD Code: J44.9 - CHRONIC OBSTRUCTIVE PULMONARY DISEASE, UNSPECIFIED Status : Acute Current Visit: Yes Qualifiers: COPD type: COPD with acute exacerbation Qualified Code(s): J44.1 - Chronic obstructive pulmonary disease with (acute) exacerbation (4) Congestive heart failure SNOMED Code(s): 03963058 ICD Code: I50.9 - HEART FAILURE, UNSPECIFIED Status: Acute Current Visit : Yes Qualifiers: Congestive heart failure type: diastolic Congestive heart failure chronicity: acute on chronic Qualified Code(s): I50.33 - Acute on chronic diastolic (congestive) heart failure (5) Elevated troponin I level SNOMED Code(s): 087562351 ICD Code: R74.8 - ABNORMAL LEVELS OF OTHER SERUM ENZYMES Status: Acute Current Visit: Yes (6) Hypoxia SNOMED Code(s): 379618912, 846625703 ICD Code: R09.02 - HYPOXEMIA Status: Acute Current Visit: Yes (7) Influenza A SNOMED Code(s): 338859595 ICD Code: J10.1 - FLU DUE TO OTH IDENT INFLUENZA VIRUS W OTH RESP MANIFEST Status: Acute Current Visit: Yes (8) NSTEMI (non-ST elevated myocardial infarction) SNOMED Code(s): 99361341 ICD Code: I21.4 - NON-ST ELEVATION (NSTEMI) MYOCARDIAL INFARCTION Status: Acute Current Visit: Yes Problem List Initiated/Reviewed/Updated: Yes Orders Last 24hrs: Active Orders 24 hr Category Date Time Status Activity as Tolerated [RC] .Routine Care 12/06/16 14:00 Active Antiembolic Devices [RC] PER UNIT ROUTINE Care 12/06/16 17:30 Active EKG 12 Lead [EKG Documentation Completion] [RC] ROUTINE Care 12/06/16 18:00 Active Vital Signs [RC] 21,03,09,15 Care 12/06/16 14:00 Active Consult to Occupational Therapy [OT Evaluation and Cons 12/06/16 14:13 Active Treatment] [CONS] Routine Consult to Physical Therapy [PT Evaluation and Cons 12/06/16 14:13 Active Treatment] [CONS] Routine Consult to Remote Sensing Program Manager [CONS] Routine Cons 12/06/16 14:14 Active Heart Healthy Diet [DIET] Diet 12/06/16 Dinner Active CXR [Chest 2V] [CR] Routine Exams 12/08/16 09:00 Ordered Echo Comp wo Cont [US] Routine Exams 12/09/16 08:00 Ordered B-TYPE NATRIURETIC PEPTIDE,BNP [CHEM] Routine Lab 12/07/16 05:00 Ordered BASIC METABOLIC PANEL,BMP [CHEM] DAILY Lab 12/07/16 05:00 Ordered BASIC METABOLIC PANEL,BMP [CHEM] DAILY Lab 12/08/16 05:00 Ordered BASIC METABOLIC PANEL,BMP [CHEM] DAILY Lab 12/09/16 05:00 Ordered BASIC METABOLIC PANEL,BMP [CHEM] DAILY Lab 12/10/16 05:00 Ordered CBC W/O DIFF,HEMOGRAM [HEME] MOTH@0700 Lab 12/09/16 07:00 Ordered CBC W/O DIFF,HEMOGRAM [HEME] MOTH@0700 Lab 12/12/16 07:00 Ordered CBC W/O DIFF,HEMOGRAM [HEME] MOTH@0700 Lab 12/16/16 07:00 Ordered CBC W/O DIFF,HEMOGRAM [HEME] MOTH@0700 Lab 12/19/16 07:00 Ordered CBC W/O DIFF,HEMOGRAM [HEME] MOTH@0700 Lab 12/23/16 07:00 Ordered CBC W/O DIFF,HEMOGRAM [HEME] MOTH@0700 Lab 12/26/16 07:00 Ordered CBC WITH AUTO DIFF [HEME] DAILY Lab 12/07/16 05:00 Ordered CBC WITH AUTO DIFF [HEME] DAILY Lab 12/08/16 05:00 Ordered CBC WITH AUTO DIFF [HEME] DAILY Lab 12/09/16 05:00 Ordered CBC WITH AUTO DIFF [HEME] DAILY Lab 12/10/16 05:00 Ordered CRP [C-REACTIVE PROTEIN] [CHEM] DAILY Lab 12/07/16 05:00 Ordered CRP [C-REACTIVE PROTEIN] [CHEM] DAILY Lab 12/08/16 05:00 Ordered CRP [C-REACTIVE PROTEIN] [CHEM] DAILY Lab 12/09/16 05:00 Ordered CRP [C-REACTIVE PROTEIN] [CHEM] DAILY Lab 12/10/16 05:00 Ordered LIPID PANEL [CHEM] Routine Lab 12/07/16 05:00 Ordered MAGNESIUM [CHEM] DAILY Lab 12/07/16 05:00 Ordered MAGNESIUM [CHEM] DAILY Lab 12/08/16 05:00 Ordered MAGNESIUM [CHEM] DAILY Lab 12/09/16 05:00 Ordered MAGNESIUM [CHEM] DAILY Lab 12/10/16 05:00 Ordered TROPONIN I [CHEM] Routine Lab 12/07/16 05:00 Ordered Allopurinol [Zyloprim] Med 12/07/16 09:00 Active 300 mg PO DAILY Aspirin [Halfprin] Med 12/07/16 09:00 Active 81 mg PO DAILY Clopidogrel [Plavix] Med 12/07/16 09:00 Active 75 mg PO DAILY Doxycycline [Vibramycin] 100 mg Med 12/06/16 21:00 Active Sodium Chloride 0.9% [Normal Saline] 100 ml IV Q12HR Enoxaparin [Lovenox] Med 12/06/16 17:30 Active 30 mg SUBCUT DAILY Metoprolol Tartrate [Lopressor] Med 12/06/16 21:00 Active 12.5 mg PO Q12HR Nicotine [Habitrol] Med 12/06/16 17:30 Active 21 mg TRDERM DAILY Oseltamivir [Tamiflu] Med 12/06/16 14:00 Active 30 mg PO BID Remove Patch Med 12/06/16 17:45 Active 1 ea TRDERM Q24H Simvastatin [Zocor] Med 12/06/16 21:00 Active 5 mg PO BEDTIME Sodium Chloride 0.9% [Normal Saline] 1,000 ml Med 12/06/16 17:45 Active IV ASDIRECTED Code Status [Resuscitation Status] Routine Resus Stat 12/06/16 18:31 Ordered Medication Orders Allopurinol (Zyloprim) 300 mg PO DAILY [facility] Aspirin (Halfprin) 81 mg PO DAILY [facility] Clopidogrel Bisulfate (Plavix) 75 mg PO DAILY [facility] Enoxaparin Sodium (Lovenox) 30 mg SUBCUT DAILY [facility] Last Admin: 12/06/16 18:01 Dose: 30 mg Doxycycline Hyclate 100 mg/ (Sodium Chloride) 100 mls @ 100 mls/hr IV Q12HR [facility] Sodium Chloride (Normal Saline) 1,000 mls @ 100 mls/hr IV ASDIRECTED [facility] Metoprolol Tartrate (Lopressor) 12.5 mg PO Q12HR [facility] Miscellaneous Information (Remove Patch) 1 ea TRDERM Q24H [facility] Nicotine (Habitrol) 21 mg TRDERM DAILY [facility] Last Admin: 12/06/16 18:02 Dose: 21 mg Oseltamivir Phosphate (Tamiflu) 30 mg PO BID [facility] Last Admin: 12/06/16 15:40 Dose: Simvastatin (Zocor) 5 mg PO BEDTIME [facility] Assessment/Plan Comment:: Impression: AMS, iatrogenic; query steroids cf Tamiflu Hallucinations; query steroid induced psychosis COPD exacerbation; query HCAP Hypoxia ACS with hx of CAD/PA S/P CABG Diabetes mellitus type II Tobacco dependence Chronic Hyperlipidemia GERD Basal Cell CA Ch back pain with hx of back surgery Plan: HCAP coverage O2 to maintain sat> 92% Recheck Influenza Check Strep pneumo/Mycoplasma ACS Rx with plavix, declines aggressive treatment Transdermal nicotine 21 mg daily DVT/GI prophylaxis
[2016-12-06] MEDS: Simvastatin 10 MG Tab PO SCH (20:53)
[2016-12-06] MEDS: Metoprolol Tartrate 25 MG Tab PO SCH (20:54)
[2016-12-06] MEDS: Doxycycline 100 MG in Sodium Chloride 0.9% 100 ML IV SCH (20:56)
[2016-12-06] MEDS: Temazepam 7.5 MG Cap PO PRN (21:32)
[2016-12-06] MEDS: Sodium Chloride 0.9% 1,000 ML IV SCH (23:00)
[2016-12-07] MEDS: Enoxaparin 40 MG/0.4 ML Syringe SUBCUT SCH (08:26)
[2016-12-07] MEDS: Nicotine 21 MG/24 Hr Patch TRDERM SCH (08:27)
[2016-12-07] MEDS: Aspirin 81 MG Tab.EC PO SCH (08:28)
[2016-12-07] MEDS: Doxycycline 100 MG in Sodium Chloride 0.9% 100 ML IV SCH ×2 (08:28→20:07)
[2016-12-07] MEDS: Metoprolol Tartrate 25 MG Tab PO SCH ×3 (08:29→20:20)
[2016-12-07] MEDS: Allopurinol 300 MG Tab PO SCH (08:29)
[2016-12-07] MEDS: Clopidogrel 75 MG Tab PO SCH (08:29)
[2016-12-07] MEDS: Sodium Chloride 0.9% 1,000 ML IV SCH ×2 (08:30→19:14)
--- NOTE | 2016-12-07 18:13 | PCM.PN ---
- General Info Functional Status: Reports: tolerating diet, ambulating, urinating - Review of Systems General: Reports: weakness HEENT: Reports: no symptoms Pulmonary: Reports: shortness of breath (minimal, has not required O2 at rest) Cardiovascular: Reports: no symptoms Gastrointestinal: Reports: No symptoms Genitourinary: Reports: no symptoms Musculoskeletal: Reports: no symptoms Skin: Reports: no symptoms Neurological: Reports: no symptoms Psychiatric: Reports: no symptoms - Patient Data Vitals - most recent: Last Vital Signs Temp 37.2 C 12/07/16 15:07 Pulse 83 12/07/16 15:07 Resp 20 12/07/16 15:07 BP 116/72 12/07/16 15:07 Pulse Ox 97 12/07/16 15:07 Weight - most recent: 70.845 kg I&O - last 24 hours: Intake & Output 12/07/16 12/07/16 12/07/16 06:59 14:59 22:59 Intake Total 1808 360 360 Output Total 450 790 Balance 1358 360 -430 Lab Results last 24 hrs: Laboratory Results - last 24 hr 12/07/16 12/07/16 12/07/16 Range/Units 07:00 07:00 07:00 WBC 9.62 H (4.23-9.07) K/mm3 RBC 3.35 L (4.63-6.08) M/mm3 Hgb 11.0 L (13.7-17.5) gm/L Hct 33.0 L (40.1-51.0) % MCV 98.5 H (79.0-92.2) fl MCH 32.8 H (25.7-32.2) pg MCHC 33.3 (32.2-35.5) g/dl RDW Std Deviation 47.9 H (35.1-43.9) fL Plt Count 178 (163-337) K/mm3 MPV 10.2 (9.4-12.3) fl Neut % (Auto) 71.2 H (34.0-67.9) % Lymph % (Auto) 18.2 L (21.8-53.1) % [place] % (Auto) 7.2 (5.3-12.2) % Eos % (Auto) 0.4 L (0.8-7.0) Baso % (Auto) 0.1 (0.1-1.2) % Neut # 6.85 H (1.78-5.38) K/mm3 Lymph # 1.75 (1.32-3.57) K/mm3 [place] # 0.69 (0.30-0.82) K/mm3 Eos # 0.04 (0.04-0.54) K/mm3 Baso # 0.01 (0.01-0.08) K/mm3 Manual Slide Review Normal smear Sodium 141 (136-145) mEq/L Potassium 3.7 (3.5-5.1) mEq/L Chloride 104 (98-107) mEq/L Carbon Dioxide 25 (21-32) mEq/L Anion Gap 15.7 H (5-15) BUN 33 H (7-18) mg/dL Creatinine 1.3 (0.7-1.3) mg/dL Est Cr Clr Drug Dosing 35.26 mL/min Estimated GFR (MDRD) 53 (>60) mL/min BUN/Creatinine Ratio 25.4 H (14-18) Glucose 93 (83-115) mg/dL Calcium 9.0 (8.5-10.1) mg/dL Magnesium 1.6 L (1.8-2.4) mg/dl Troponin I 0.160 H* (0.00-0.056) ng/mL C-Reactive Protein 4.4 H* (<1.0) mg/dL B-Natriuretic Peptide 409 H (0-100) pg/mL Triglycerides 130 (<150) mg/dL Cholesterol 110 (<200) mg/dL LDL Cholesterol Direct 51 (<100) mg/dL HDL Cholesterol 45.0 (40-59) mg/dL Mycoplasma pneumon IgM (NEGATIVE) 12/07/16 Range/Units 07:00 WBC (4.23-9.07) K/mm3 RBC (4.63-6.08) M/mm3 Hgb (13.7-17.5) gm/L Hct (40.1-51.0) % MCV (79.0-92.2) fl MCH (25.7-32.2) pg MCHC (32.2-35.5) g/dl RDW Std Deviation (35.1-43.9) fL Plt Count (163-337) K/mm3 MPV (9.4-12.3) fl Neut % (Auto) (34.0-67.9) % Lymph % (Auto) (21.8-53.1) % [place] % (Auto) (5.3-12.2) % Eos % (Auto) (0.8-7.0) Baso % (Auto) (0.1-1.2) % Neut # (1.78-5.38) K/mm3 Lymph # (1.32-3.57) K/mm3 [place] # (0.30-0.82) K/mm3 Eos # (0.04-0.54) K/mm3 Baso # (0.01-0.08) K/mm3 Manual Slide Review Sodium (136-145) mEq/L Potassium (3.5-5.1) mEq/L Chloride (98-107) mEq/L Carbon Dioxide (21-32) mEq/L Anion Gap (5-15) BUN (7-18) mg/dL Creatinine (0.7-1.3) mg/dL Est Cr Clr Drug Dosing mL/min Estimated GFR (MDRD) (>60) mL/min BUN/Creatinine Ratio (14-18) Glucose (83-115) mg/dL Calcium (8.5-10.1) mg/dL Magnesium (1.8-2.4) mg/dl Troponin I (0.00-0.056) ng/mL C-Reactive Protein (<1.0) mg/dL B-Natriuretic Peptide (0-100) pg/mL Triglycerides (<150) mg/dL Cholesterol (<200) mg/dL LDL Cholesterol Direct (<100) mg/dL HDL Cholesterol (40-59) mg/dL Mycoplasma pneumon IgM Negative (NEGATIVE) Med Orders - Current: Current Medications Allopurinol (Zyloprim) 300 mg PO DAILY [facility] Last Admin: 12/07/16 08:29 Dose: 300 mg Aspirin (Halfprin) 81 mg PO DAILY [facility] Last Admin: 12/07/16 08:28 Dose: 81 mg Clopidogrel Bisulfate (Plavix) 75 mg PO DAILY [facility] Last Admin: 12/07/16 08:29 Dose: 75 mg Enoxaparin Sodium (Lovenox) 40 mg SUBCUT DAILY [facility] Last Admin: 12/07/16 08:26 Dose: 40 mg Doxycycline Hyclate 100 mg/ (Sodium Chloride) 100 mls @ 100 mls/hr IV Q12HR [facility] Last Admin: 12/07/16 08:28 Dose: 100 mls/hr Sodium Chloride (Normal Saline) 1,000 mls @ 100 mls/hr IV ASDIRECTED [facility] Last Admin: 12/07/16 08:30 Dose: 100 mls/hr Metoprolol Tartrate (Lopressor) 12.5 mg PO Q12HR [facility] Last Admin: 12/07/16 08:29 Dose: 12.5 mg Miscellaneous Information (Remove Patch) 1 ea TRDERM Q24H [facility] Nicotine (Habitrol) 21 mg TRDERM DAILY [facility] Last Admin: 12/07/16 08:27 Dose: 21 mg Simvastatin (Zocor) 5 mg PO BEDTIME [facility] Last Admin: 12/06/16 20:53 Dose: 5 mg Temazepam (Restoril) 7.5 mg PO BEDTIME PRN PRN Reason: Insomnia Last Admin: 12/06/16 21:32 Dose: 7.5 mg Discontinued Medications Albuterol/Ipratropium (Duoneb 3.0-0.5 Mg/3 Ml) 3 ml NEB ONETIME ONE Stop: 12/06/16 10:01 Last Admin: 12/06/16 10:10 Dose: 3 ml Clopidogrel Bisulfate (Plavix) 300 mg PO ONETIME ONE Stop: 12/06/16 15:01 Last Admin: 12/06/16 16:23 Dose: 300 mg Enoxaparin Sodium (Lovenox) 30 mg SUBCUT DAILY [facility] Last Admin: 12/06/16 18:01 Dose: 30 mg Furosemide (Lasix) 40 mg IVPUSH NOW ONE Stop: 12/06/16 11:12 Last Admin: 12/06/16 11:28 Dose: 40 mg Sodium Chloride (Normal Saline) 1,000 mls @ 100 mls/hr IV ASDIRECTED [facility] Last Infusion: 12/06/16 12:40 Dose: 50 mls/hr Levofloxacin/Dextrose 750 mg/ (Premix) 150 mls @ 100 mls/hr IV ONETIME ONE Stop: 12/06/16 14:10 Last Admin: 12/06/16 12:50 Dose: 100 mls/hr Miscellaneous Information (Remove Patch) 1 ea TRDERM Q24H [facility] Last Admin: 12/06/16 20:00 Dose: Not Given Miscellaneous Information (Remove Patch) 1 ea TRLOLYM Q24H [facility] Oseltamivir Phosphate (Tamiflu) 30 mg PO BID [facility] Last Admin: 12/06/16 15:40 Dose: Not Given - Exam Quality Assessment: DVT prophylaxis General: alert, oriented, cooperative, no acute distress HEENT: Pupils equal, Pupils reactive, EOMI Neck: trachea midline, no JVD Lungs: Normal respiratory effort, Rhonchi Cardiovascular: regular rate, regular rhythm Abdomen: bowel sounds present, soft, no tenderness, no distension (Male) Exam: Deferred Back Exam: normal inspection Extremities: normal pulses Skin: warm Neurological: normal speech Psy/Mental Status: alert, normal affect, normal mood - Problem List & Annotations (1) Acute hyperactive delirium due to another medical condition SNOMED Code(s): 7303740, 151749107, 137896923 Code(s): F05 - DELIRIUM DUE TO KNOWN PHYSIOLOGICAL CONDITION Status: Acute Current Visit: Yes (2) Adverse effects of medication SNOMED Code(s): 85982161 Code(s): T88.7XXA - UNSP ADVERSE EFFECT OF DRUG OR MEDICAMENT, INIT ENCNTR Status: Acute Current Visit: Yes (3) COPD (chronic obstructive pulmonary disease) SNOMED Code(s): 59995901 Code(s): J44.9 - CHRONIC OBSTRUCTIVE PULMONARY DISEASE, UNSPECIFIED Status : Acute Current Visit: Yes Qualifiers: COPD type: COPD with acute exacerbation Qualified Code(s): J44.1 - Chronic obstructive pulmonary disease with (acute) exacerbation (4) Congestive heart failure SNOMED Code(s): 56374393 Code(s): I50.9 - HEART FAILURE, UNSPECIFIED Status: Acute Current Visit: Yes Qualifiers: Congestive heart failure type: diastolic Congestive heart failure chronicity: acute on chronic Qualified Code(s): I50.33 - Acute on chronic diastolic (congestive) heart failure (5) Elevated troponin I level SNOMED Code(s): 651739925 Code(s): R74.8 - ABNORMAL LEVELS OF OTHER SERUM ENZYMES Status: Acute Current Visit: Yes (6) Hypoxia SNOMED Code(s): 087688074, 344504188 Code(s): R09.02 - HYPOXEMIA Status: Acute Current Visit: Yes (7) Influenza A SNOMED Code(s): 099083575 Code(s): J10.1 - FLU DUE TO OTH IDENT INFLUENZA VIRUS W OTH RESP MANIFEST Status: Acute Current Visit: Yes (8) NSTEMI (non-ST elevated myocardial infarction) SNOMED Code(s): 62286845 Code(s): I21.4 - NON-ST ELEVATION (NSTEMI) MYOCARDIAL INFARCTION Status: Acute Current Visit: Yes - Problem List Review Problem List Initiated/Reviewed/Updated: Yes - My Orders Last 24 Hours: My Active Orders 12/06/16 17:30 Antiembolic Devices [RC] PER UNIT ROUTINE Nicotine [Habitrol] 21 mg TRDERM DAILY 12/06/16 17:45 Sodium Chloride 0.9% [Normal Saline] 1,000 ml IV ASDIRECTED 12/06/16 18:31 Code Status [Resuscitation Status] Routine 12/06/16 21:00 Doxycycline [Vibramycin] 100 mg Sodium Chloride 0.9% [Normal Saline] 100 ml IV Q12HR Metoprolol Tartrate [Lopressor] 12.5 mg PO Q12HR Simvastatin [Zocor] 5 mg PO BEDTIME 12/06/16 21:15 Temazepam [Restoril] 7.5 mg PO BEDTIME PRN 12/07/16 01:30 STREP PNEUMONIAE ANTIGEN [MREF] Routine 12/07/16 03:33 INFLUENZA A,B, H1N1 BY PCR [MREF] Routine 12/07/16 09:00 Allopurinol [Zyloprim] 300 mg PO DAILY Aspirin [Halfprin] 81 mg PO DAILY Clopidogrel [Plavix] 75 mg PO DAILY Enoxaparin [Lovenox] 40 mg SUBCUT DAILY Remove Patch 1 ea TRDERM Q24H 12/08/16 05:00 BASIC METABOLIC PANEL,BMP [CHEM] DAILY CBC WITH AUTO DIFF [HEME] DAILY CRP [C-REACTIVE PROTEIN] [CHEM] DAILY MAGNESIUM [CHEM] DAILY 12/08/16 09:00 CXR [Chest 2V] [CR] Routine 12/09/16 05:00 BASIC METABOLIC PANEL,BMP [CHEM] DAILY CBC WITH AUTO DIFF [HEME] DAILY CRP [C-REACTIVE PROTEIN] [CHEM] DAILY MAGNESIUM [CHEM] DAILY 12/09/16 07:00 CBC W/O DIFF,HEMOGRAM [HEME] MOTH@0700 12/09/16 08:00 Echo Comp wo Cont [US] Routine 12/10/16 05:00 BASIC METABOLIC PANEL,BMP [CHEM] DAILY CBC WITH AUTO DIFF [HEME] DAILY CRP [C-REACTIVE PROTEIN] [CHEM] DAILY MAGNESIUM [CHEM] DAILY 12/12/16 07:00 CBC W/O DIFF,HEMOGRAM [HEME] MOTH@0700 12/16/16 07:00 CBC W/O DIFF,HEMOGRAM [HEME] MOTH@0700 12/19/16 07:00 CBC W/O DIFF,HEMOGRAM [HEME] MOTH@0700 12/23/16 07:00 CBC W/O DIFF,HEMOGRAM [HEME] MOTH@0700 12/26/16 07:00 CBC W/O DIFF,HEMOGRAM [HEME] MOTH@0700 - Plan Plan:: Impression: AMS, iatrogenic; steroids cf Tamiflu, completed course. 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
[2016-12-07] MEDS: Ibuprofen 600 MG Tab PO PRN (19:14)
[2016-12-07] MEDS: Simvastatin 10 MG Tab PO SCH (20:20)
[2016-12-07] MEDS: Temazepam 7.5 MG Cap PO PRN (21:53)
[2016-12-07] MEDS: Docusate Sodium 100 MG Cap PO SCH (21:53)
[2016-12-07] MEDS: hydrALAZINE 20 MG/ML SDV IVPUSH PRN (21:53)
[2016-12-07] MEDS: Acetaminophen Susp 325 MG/10.15 ML UD Cup PO PRN (22:55)
[2016-12-08] MEDS: Sodium Chloride 0.9% 1,000 ML IV SCH (04:58)
[2016-12-08] MEDS ORDERED: Magnesium Sulfate/Water 2 GM in Premix Bag 1 BAG IV ONE (08:57)
--- NOTE | 2016-12-08 09:26 | CR ---
Chest: 2 views of the chest were obtained. Comparison: Previous chest x-ray of 12/06/16. Heart is mildly enlarged. Sternotomy noted for prior CABG. Diaphragms are flattened on the lateral view compatible with emphysematous change. Moderate compression deformity is seen within the mid thoracic spine which is most likely old. Mild scoliosis is seen. No acute infiltrates are seen. Impression: 1. Incidental findings as noted above. Nothing acute is identified. No appreciable change is seen from prior chest x-ray. Diagnostic code #2
[2016-12-08] MEDS: Allopurinol 300 MG Tab PO SCH (09:31)
[2016-12-08] MEDS: Aspirin 81 MG Tab.EC PO SCH (09:32)
[2016-12-08] MEDS: Metoprolol Tartrate 25 MG Tab PO SCH ×2 (09:32→20:52)
[2016-12-08] MEDS: Clopidogrel 75 MG Tab PO SCH (09:32)
[2016-12-08] MEDS: Docusate Sodium 100 MG Cap PO SCH ×2 (09:32→20:49)
[2016-12-08] MEDS: Enoxaparin 40 MG/0.4 ML Syringe SUBCUT SCH (09:34)
[2016-12-08] MEDS: Nicotine 21 MG/24 Hr Patch TRDERM SCH (09:35)
[2016-12-08] MEDS: Doxycycline 100 MG in Sodium Chloride 0.9% 100 ML IV SCH ×2 (09:36→20:58)
[2016-12-08] MEDS: hydrALAZINE 20 MG/ML SDV IVPUSH PRN (16:17)
--- NOTE | 2016-12-08 16:28 | PCM.PN ---
- General Info Date of Service: 12/08/16 Functional Status: Reports: tolerating diet, ambulating, urinating - Review of Systems General: Reports: weakness, fatigue HEENT: Reports: no symptoms Pulmonary: Reports: shortness of breath Cardiovascular: Reports: no symptoms Gastrointestinal: Reports: No symptoms Genitourinary: Reports: no symptoms Musculoskeletal: Reports: no symptoms Skin: Reports: no symptoms Neurological: Reports: no symptoms Psychiatric: Reports: no symptoms - Patient Data Vitals - most recent: Last Vital Signs Temp 36.4 C 12/08/16 09:04 Pulse 85 12/08/16 09:32 Resp 17 12/08/16 09:00 BP 145/71 H 12/08/16 10:32 Pulse Ox 98 12/08/16 09:04 Weight - most recent: 72.802 kg I&O - last 24 hours: Intake & Output 12/08/16 12/08/16 12/08/16 06:59 14:59 22:59 Intake Total 1268 1282 Output Total 500 Balance 768 1282 Lab Results last 24 hrs: Laboratory Results - last 24 hr 12/08/16 12/08/16 Range/Units 06:32 06:32 WBC 9.80 H (4.23-9.07) K/mm3 RBC 3.54 L (4.63-6.08) M/mm3 Hgb 11.5 L (13.7-17.5) gm/L Hct 34.8 L (40.1-51.0) % MCV 98.3 H (79.0-92.2) fl MCH 32.5 H (25.7-32.2) pg MCHC 33.0 (32.2-35.5) g/dl RDW Std Deviation 47.9 H (35.1-43.9) fL Plt Count 211 (163-337) K/mm3 MPV 10.7 (9.4-12.3) fl Neut % (Auto) 69.3 H (34.0-67.9) % Lymph % (Auto) 18.2 L (21.8-53.1) % [place] % (Auto) 7.0 (5.3-12.2) % Eos % (Auto) 0.6 L (0.8-7.0) Baso % (Auto) 0.2 (0.1-1.2) % Neut # 6.79 H (1.78-5.38) K/mm3 Lymph # 1.78 (1.32-3.57) K/mm3 [place] # 0.69 (0.30-0.82) K/mm3 Eos # 0.06 (0.04-0.54) K/mm3 Baso # 0.02 (0.01-0.08) K/mm3 Manual Slide Review Normal smear Sodium 142 (136-145) mEq/L Potassium 3.6 (3.5-5.1) mEq/L Chloride 109 H (98-107) mEq/L Carbon Dioxide 22 (21-32) mEq/L Anion Gap 14.6 (5-15) BUN 26 H (7-18) mg/dL Creatinine 1.2 (0.7-1.3) mg/dL Est Cr Clr Drug Dosing 38.20 mL/min Estimated GFR (MDRD) 58 (>60) mL/min BUN/Creatinine Ratio 21.7 H (14-18) Glucose 112 (83-115) mg/dL Calcium 9.0 (8.5-10.1) mg/dL Magnesium 1.5 L (1.8-2.4) mg/dl C-Reactive Protein 3.2 H* (<1.0) mg/dL Med Orders - Current: Current Medications Acetaminophen (Tylenol Solution) 650 mg PO Q6H PRN PRN Reason: Pain (moderate 4-6) Last Admin: 12/07/16 22:55 Dose: 650 mg Allopurinol (Zyloprim) 300 mg PO DAILY [facility] Last Admin: 12/08/16 09:31 Dose: 300 mg Aspirin (Halfprin) 81 mg PO DAILY [facility] Last Admin: 12/08/16 09:32 Dose: 81 mg Clopidogrel Bisulfate (Plavix) 75 mg PO DAILY [facility] Last Admin: 12/08/16 09:32 Dose: 75 mg Docusate Sodium (Colace) 100 mg PO BID [facility] Last Admin: 12/08/16 09:32 Dose: 100 mg Enoxaparin Sodium (Lovenox) 40 mg SUBCUT DAILY [facility] Last Admin: 12/08/16 09:34 Dose: 40 mg Hydralazine HCl (Apresoline) 20 mg IVPUSH Q6H PRN PRN Reason: Hypertension Last Admin: 12/08/16 16:17 Dose: 20 mg Doxycycline Hyclate 100 mg/ (Sodium Chloride) 100 mls @ 100 mls/hr IV Q12HR [facility] Last Admin: 12/08/16 09:36 Dose: 100 mls/hr Ibuprofen (Motrin) 600 mg PO Q8H PRN PRN Reason: Pain (severe 7-10) Last Admin: 12/07/16 19:14 Dose: 600 mg Metoprolol Tartrate (Lopressor) 12.5 mg PO Q12HR [facility] Last Admin: 12/08/16 09:32 Dose: 12.5 mg Miscellaneous Information (Remove Patch) 1 ea TRDERM Q24H [facility] Last Admin: 12/08/16 09:36 Dose: 1 ea Nicotine (Habitrol) 21 mg TRDERM DAILY [facility] Last Admin: 12/08/16 09:35 Dose: 21 mg Simvastatin (Zocor) 5 mg PO BEDTIME [facility] Last Admin: 12/07/16 20:20 Dose: 5 mg Temazepam (Restoril) 7.5 mg PO BEDTIME PRN PRN Reason: Insomnia Last Admin: 12/07/16 21:53 Dose: 7.5 mg Discontinued Medications Albuterol/Ipratropium (Duoneb 3.0-0.5 Mg/3 Ml) 3 ml NEB ONETIME ONE Stop: 12/06/16 10:01 Last Admin: 12/06/16 10:10 Dose: 3 ml Clopidogrel Bisulfate (Plavix) 300 mg PO ONETIME ONE Stop: 12/06/16 15:01 Last Admin: 12/06/16 16:23 Dose: 300 mg Enoxaparin Sodium (Lovenox) 30 mg SUBCUT DAILY [facility] Last Admin: 12/06/16 18:01 Dose: 30 mg Furosemide (Lasix) 40 mg IVPUSH NOW ONE Stop: 12/06/16 11:12 Last Admin: 12/06/16 11:28 Dose: 40 mg Sodium Chloride (Normal Saline) 1,000 mls @ 100 mls/hr IV ASDIRECTED [facility] Last Infusion: 12/06/16 12:40 Dose: 50 mls/hr Levofloxacin/Dextrose 750 mg/ (Premix) 150 mls @ 100 mls/hr IV ONETIME ONE Stop: 12/06/16 14:10 Last Admin: 12/06/16 12:50 Dose: 100 mls/hr Sodium Chloride (Normal Saline) 1,000 mls @ 100 mls/hr IV ASDIRECTED [facility] Last Admin: 12/08/16 04:58 Dose: 100 mls/hr Magnesium Sulfate 2 gm/ Premix 50 mls @ 25 mls/hr IV ONETIME ONE Stop: 12/08/16 10:56 Last Admin: 12/08/16 11:04 Dose: 25 mls/hr Miscellaneous Information (Remove Patch) 1 ea TRDERM Q24H [facility] Last Admin: 12/06/16 20:00 Dose: Not Given Miscellaneous Information (Remove Patch) 1 ea TRDERM Q24H [facility] Oseltamivir Phosphate (Tamiflu) 30 mg PO BID [facility] Last Admin: 12/06/16 15:40 Dose: Not Given - Exam Quality Assessment: supplemental oxygen, DVT prophylaxis General: alert, oriented, cooperative, no acute distress HEENT: Pupils equal, Pupils reactive, EOMI Neck: supple, trachea midline Lungs: Normal respiratory effort, Decreased breath sounds Cardiovascular: regular rate, regular rhythm Abdomen: bowel sounds present, soft, no tenderness, no distension (Male) Exam: Deferred Back Exam: normal inspection Extremities: normal pulses Skin: warm Neurological: no new focal deficit, normal gait, normal speech Psy/Mental Status: alert, normal affect, normal mood, other (confused; alert, oriented x2) - Problem List & Annotations (1) Acute hyperactive delirium due to another medical condition SNOMED Code(s): 5139831, 241597015, 671020812 Code(s): F05 - DELIRIUM DUE TO KNOWN PHYSIOLOGICAL CONDITION Status: Acute Current Visit: Yes (2) Adverse effects of medication SNOMED Code(s): 54059241 Code(s): T88.7XXA - UNSP ADVERSE EFFECT OF DRUG OR MEDICAMENT, INIT ENCNTR Status: Acute Current Visit: Yes (3) COPD (chronic obstructive pulmonary disease) SNOMED Code(s): 54750596 Code(s): J44.9 - CHRONIC OBSTRUCTIVE PULMONARY DISEASE, UNSPECIFIED Status : Acute Current Visit: Yes Qualifiers: COPD type: COPD with acute exacerbation Qualified Code(s): J44.1 - Chronic obstructive pulmonary disease with (acute) exacerbation (4) Congestive heart failure SNOMED Code(s): 53323722 Code(s): I50.9 - HEART FAILURE, UNSPECIFIED Status: Acute Current Visit: Yes Qualifiers: Congestive heart failure type: diastolic Congestive heart failure chronicity: acute on chronic Qualified Code(s): I50.33 - Acute on chronic diastolic (congestive) heart failure (5) Elevated troponin I level SNOMED Code(s): 143902054 Code(s): R74.8 - ABNORMAL LEVELS OF OTHER SERUM ENZYMES Status: Acute Current Visit: Yes (6) Hypoxia SNOMED Code(s): 395574378, 481007574 Code(s): R09.02 - HYPOXEMIA Status: Acute Current Visit: Yes (7) Influenza A SNOMED Code(s): 651682031 Code(s): J10.1 - FLU DUE TO OTH IDENT INFLUENZA VIRUS W OTH RESP MANIFEST Status: Acute Current Visit: Yes (8) NSTEMI (non-ST elevated myocardial infarction) SNOMED Code(s): 06333144 Code(s): I21.4 - NON-ST ELEVATION (NSTEMI) MYOCARDIAL INFARCTION Status: Acute Current Visit: Yes - Problem List Review Problem List Initiated/Reviewed/Updated: Yes - My Orders Last 24 Hours: My Active Orders 12/07/16 18:32 Acetaminophen [Tylenol Solution] 650 mg PO Q6H PRN Ibuprofen [Motrin] 600 mg PO Q8H PRN 12/07/16 21:37 hydrALAZINE [Apresoline] 20 mg IVPUSH Q6H PRN 12/07/16 21:45 Docusate Sodium [Colace] 100 mg PO BID 12/09/16 05:00 BASIC METABOLIC PANEL,BMP [CHEM] DAILY CBC WITH AUTO DIFF [HEME] DAILY CRP [C-REACTIVE PROTEIN] [CHEM] DAILY MAGNESIUM [CHEM] DAILY 12/09/16 07:00 CBC W/O DIFF,HEMOGRAM [HEME] MOTH@69912/09/16 08:00 Echo Comp wo Cont [US] Routine 12/10/16 05:00 BASIC METABOLIC PANEL,BMP [CHEM] DAILY CBC WITH AUTO DIFF [HEME] DAILY CRP [C-REACTIVE PROTEIN] [CHEM] DAILY MAGNESIUM [CHEM] DAILY 12/12/16 07:00 CBC W/O DIFF,HEMOGRAM [HEME] MOTH@00 12/16/16 07:00 CBC W/O DIFF,HEMOGRAM [HEME] MOTH@69912/19/16 07:00 CBC W/O DIFF,HEMOGRAM [HEME] MOTH@0712/23/16 07:00 CBC W/O DIFF,HEMOGRAM [HEME] MOTH@69912/26/16 07:00 CBC W/O DIFF,HEMOGRAM [HEME] MOTH@699 - Plan Plan:: Impression: AMS, iatrogenic; steroids cf Tamiflu, completed course. 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
[2016-12-08] MEDS: Ibuprofen 600 MG Tab PO PRN (17:51)
[2016-12-08] MEDS ORDERED: Isosorbide Mononitrate 30 MG Tab.ER PO SCH (19:00)
[2016-12-08] MEDS ORDERED: Losartan 25 MG Tab PO SCH ×2 (19:15→21:00)
[2016-12-08] MEDS: Losartan 25 MG Tab PO SCH (19:47)
[2016-12-08] MEDS: Simvastatin 10 MG Tab PO SCH (20:50)
[2016-12-08] MEDS: Isosorbide Mononitrate 30 MG Tab.ER PO SCH (20:51)
[2016-12-08] MEDS: Acetaminophen Susp 325 MG/10.15 ML UD Cup PO PRN (23:19)
[2016-12-08] MEDS: Temazepam 7.5 MG Cap PO PRN (23:20)
[2016-12-09 07:21] VITALS: BP 169/77
[2016-12-09] MEDS: Docusate Sodium 100 MG Cap PO SCH (10:06)
[2016-12-09] MEDS: Losartan 25 MG Tab PO SCH (10:07)
[2016-12-09] MEDS: Metoprolol Tartrate 25 MG Tab PO SCH (10:07)
[2016-12-09] MEDS: Aspirin 81 MG Tab.EC PO SCH (10:08)
[2016-12-09] MEDS: Allopurinol 300 MG Tab PO SCH (10:08)
[2016-12-09] MEDS: Isosorbide Mononitrate 30 MG Tab.ER PO SCH (10:08)
[2016-12-09] MEDS: Clopidogrel 75 MG Tab PO SCH (10:08)
[2016-12-09] MEDS: Nicotine 21 MG/24 Hr Patch TRDERM SCH (10:10)
[2016-12-09] MEDS: Enoxaparin 40 MG/0.4 ML Syringe SUBCUT SCH (10:11)
[2016-12-09] MEDS: Doxycycline 100 MG in Sodium Chloride 0.9% 100 ML IV SCH (10:16)
--- NOTE | 2016-12-09 13:25 | PCM.DCSUM1 ---
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 Additionally the patient had taken steorids, prednisone 40 mg daily as written ED staff. He reportedly experienced AMS abruptly on the day he returned to the ED. Increasingly became more SOB with a dry cough; on arrival in the ED an O2 saturation was reported as 86% which increased to 95% on 3l/min. His daughter, whom he lives with also described hallucinations 3 days GARDE MANAGER. Impression: AMS, iatrogenic; steroids cf Tamiflu, completed course. 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 Plan DC home today with daughter with close follow up with PCP at [facility] within 5-7 days of discharge. - Discharge Data Discharge Date: 12/09/16 (admit date 12/06/16) Discharge Disposition: Home, Self-Care 01 Condition: Undetermined - Patient Summary/Data Operative Procedure(s) Performed: None Complications: None Consults: Consultations 12/06/16 14:13 Consult to Occupational Therapy [OT Evaluation and Treatment] [CONS] Routine Consult to Physical Therapy [PT Evaluation and Treatment] [CONS] Routine 12/06/16 14:14 Consult to Telecommunication Lines Repairer [CONS] Routine Labs Pending at D/C: Echocardiogram report Recommended Follow-up Testing/Procedures: Fup with PCP, at [facility] within 5-7 days of discharge Planned Operative Procedure(s) after DC: None Hospital Course: As above - Patient Instructions Diet: Heart Healthy Diet, Low Sodium, Drink 8-10+ Glasses/Day Activity: As Tolerated Showering/Bathing: May Shower Notify Provider of: Fever, Increased Pain, Nausea and/or Vomiting (chest pain, shortness of breath, dizziness, weakness) - Discharge Plan Prescriptions/Med Rec: Metoprolol Tartrate [Lopressor] 12.5 mg PO Q12HR #60 tablet Clopidogrel [Plavix] 75 mg PO DAILY #30 tablet Doxycycline Calcium [IMW: Doxycycline] 100 mg PO BID #10 capsule Isosorbide Mononitrate [Imdur] 30 mg PO DAILY #30 tab.er Nicotine [Habitrol] 21 mg TRDERM DAILY #30 patch Simvastatin [Zocor] 5 mg PO BEDTIME #30 tablet Home Medications: Home Meds Allopurinol [Zyloprim] 300 mg PO DAILY 12/02/16 [History] Aspirin [Lo-Dose Aspirin EC] 81 mg PO DAILY 12/02/16 [History] Cholecalciferol (Vitamin D3) [Vitamin D3] 1,000 unit PO DAILY 12/02/16 [History] Losartan [Cozaar] 100 mg PO DAILY 12/02/16 [History] Omeprazole 20 mg PO DAILY 12/02/16 [History] Oseltamivir [Tamiflu] 75 mg PO DAILY #4 cap 12/02/16 [Rx] predniSONE [Prednisone] 40 mg PO Q24H #8 tablet 12/02/16 [Rx] Clopidogrel [Plavix] 75 mg PO DAILY #30 tablet 12/09/16 [Rx] Docusate Sodium [Colace] 100 mg PO BID cap 12/09/16 [Rx] Doxycycline Calcium [IMW: Doxycycline] 100 mg PO BID #10 capsule 12/09/16 [Rx] Isosorbide Mononitrate [Imdur] 30 mg PO DAILY #30 tab.er 12/09/16 [Rx] Metoprolol Tartrate [Lopressor] 12.5 mg PO Q12HR #60 tablet 12/09/16 [Rx] Nicotine [Habitrol] 21 mg TRDERM DAILY #30 patch 12/09/16 [Rx] Simvastatin [Zocor] 5 mg PO BEDTIME #30 tablet 12/09/16 [Rx] Patient Handouts: Chronic Obstructive Pulmonary Disease Exacerbation, Easy-to- Read, Smoking Cessation, Tips for Success, [id number], Smoking Hazards, Influenza, Adult, [id number], Heart Attack, [id number], Gastroesophageal Reflux Disease, Adult Forms: ED Department Discharge Referrals: Lindy Moffett DO [Primary Care Provider] - 12/16/16 8:30 am (Please keep same appointment on December 16 at 8:30 am.) - Discharge Summary/Plan Comment DC Time >30 min.: Yes (40 min) - General Info Date of Service: 12/09/16 Admission Dx/Problem (Free Text: Admission Diagnosis/Problem Admission Diagnosis/Problem Hypoxia Influenza, NSTEMI, COPD exacerbation, tobacco dependence Functional Status: Reports: pain controlled, tolerating diet, ambulating, urinating. Denies: new symptoms - Review of Systems General: Reports: no symptoms HEENT: Reports: no symptoms Pulmonary: Reports: shortness of breath (mild - improved), cough Cardiovascular: Reports: no symptoms, dyspnea on exertion (mild). Denies: chest pain Gastrointestinal: Reports: No symptoms Genitourinary: Reports: no symptoms Musculoskeletal: Reports: no symptoms Skin: Reports: no symptoms Neurological: Reports: no symptoms Psychiatric: Reports: no symptoms - Patient Data Vitals - Most Recent: Last Vital Signs Temp 98.6 F 12/09/16 07:20 Pulse 80 12/09/16 10:07 Resp 18 12/09/16 07:20 BP 169/77 H 12/09/16 10:08 Pulse Ox 96 12/09/16 07:20 Weight - Most Recent: 71.758 kg I&O - Last 24 hours: Intake & Output 12/08/16 12/09/16 12/09/16 22:59 06:59 14:59 Intake Total 1480 180 0 Output Total 1100 600 Balance 380 -420 0 Lab Results - Last 24 hrs: Laboratory Results - last 24 hr 12/09/16 12/09/16 Range/Units 06:30 06:30 WBC 8.94 (4.23-9.07) K/mm3 RBC 3.13 L (4.63-6.08) M/mm3 Hgb 10.5 L (13.7-17.5) gm/L Hct 30.9 L (40.1-51.0) % MCV 98.7 H (79.0-92.2) fl MCH 33.5 H (25.7-32.2) pg MCHC 34.0 (32.2-35.5) g/dl RDW Std Deviation 48.3 H (35.1-43.9) fL Plt Count 183 (163-337) K/mm3 MPV 10.6 (9.4-12.3) fl Neut % (Auto) 74.9 H (34.0-67.9) % Lymph % (Auto) 15.3 L (21.8-53.1) % Carlton % (Auto) 5.9 (5.3-12.2) % Eos % (Auto) 0.8 (0.8-7.0) Baso % (Auto) 0.1 (0.1-1.2) % Neut # 6.69 H (1.78-5.38) K/mm3 Lymph # 1.37 (1.32-3.57) K/mm3 Carlton # 0.53 (0.30-0.82) K/mm3 Eos # 0.07 (0.04-0.54) K/mm3 Baso # 0.01 (0.01-0.08) K/mm3 Manual Slide Review Abnormal smear Sodium 140 (136-145) mEq/L Potassium 3.3 L (3.5-5.1) mEq/L Chloride 108 H (98-107) mEq/L Carbon Dioxide 22 (21-32) mEq/L Anion Gap 13.3 (5-15) BUN 21 H (7-18) mg/dL Creatinine 1.1 (0.7-1.3) mg/dL Est Cr Clr Drug Dosing 41.67 mL/min Estimated GFR (MDRD) > 60 (>60) mL/min BUN/Creatinine Ratio 19.1 H (14-18) Glucose 104 (83-115) mg/dL Calcium 8.8 (8.5-10.1) mg/dL Magnesium 1.8 (1.8-2.4) mg/dl C-Reactive Protein 1.8 H* (<1.0) mg/dL Med Orders - Current: Current Medications Acetaminophen (Tylenol Solution) 650 mg PO Q6H PRN PRN Reason: Pain (moderate 4-6) Last Admin: 12/08/16 23:19 Dose: 650 mg Allopurinol (Zyloprim) 300 mg PO DAILY [facility] Last Admin: 12/09/16 10:08 Dose: 300 mg Aspirin (Halfprin) 81 mg PO DAILY [facility] Last Admin: 12/09/16 10:08 Dose: 81 mg Clopidogrel Bisulfate (Plavix) 75 mg PO DAILY [facility] Last Admin: 12/09/16 10:08 Dose: 75 mg Docusate Sodium (Colace) 100 mg PO BID [facility] Last Admin: 12/09/16 10:06 Dose: 100 mg Doxycycline Hyclate (Vibramycin) 100 mg PO BID [facility] Enoxaparin Sodium (Lovenox) 40 mg SUBCUT DAILY [facility] Last Admin: 12/09/16 10:11 Dose: 40 mg Hydralazine HCl (Apresoline) 20 mg IVPUSH Q6H PRN PRN Reason: Hypertension Last Admin: 12/08/16 16:17 Dose: 20 mg Ibuprofen (Motrin) 600 mg PO Q8H PRN PRN Reason: Pain (severe 7-10) Last Admin: 12/08/16 17:51 Dose: 600 mg Isosorbide Mononitrate (Imdur) 30 mg PO DAILY [facility] Last Admin: 12/09/16 10:08 Dose: 30 mg Losartan Potassium (Cozaar) 50 mg PO BID [facility] Last Admin: 12/09/16 10:07 Dose: 50 mg Metoprolol Tartrate (Lopressor) 12.5 mg PO Q12HR [facility] Last Admin: 12/09/16 10:07 Dose: 12.5 mg Miscellaneous Information (Remove Patch) 1 ea TRDERM Q24H [facility] Last Admin: 12/08/16 09:36 Dose: 1 ea Nicotine (Habitrol) 21 mg TRDERM DAILY [facility] Last Admin: 12/09/16 10:10 Dose: 21 mg Simvastatin (Zocor) 5 mg PO BEDTIME [facility] Last Admin: 12/08/16 20:50 Dose: 5 mg Temazepam (Restoril) 7.5 mg PO BEDTIME PRN PRN Reason: Insomnia Last Admin: 12/08/16 23:20 Dose: 7.5 mg Discontinued Medications Albuterol/Ipratropium (Duoneb 3.0-0.5 Mg/3 Ml) 3 ml NEB ONETIME ONE Stop: 12/06/16 10:01 Last Admin: 12/06/16 10:10 Dose: 3 ml Clopidogrel Bisulfate (Plavix) 300 mg PO ONETIME ONE Stop: 12/06/16 15:01 Last Admin: 12/06/16 16:23 Dose: 300 mg Enoxaparin Sodium (Lovenox) 30 mg SUBCUT DAILY [facility] Last Admin: 12/06/16 18:01 Dose: 30 mg Furosemide (Lasix) 40 mg IVPUSH NOW ONE Stop: 12/06/16 11:12 Last Admin: 12/06/16 11:28 Dose: 40 mg Sodium Chloride (Normal Saline) 1,000 mls @ 100 mls/hr IV ASDIRECTED [facility] Last Infusion: 12/06/16 12:40 Dose: 50 mls/hr Levofloxacin/Dextrose 750 mg/ (Premix) 150 mls @ 100 mls/hr IV ONETIME ONE Stop: 12/06/16 14:10 Last Admin: 12/06/16 12:50 Dose: 100 mls/hr Doxycycline Hyclate 100 mg/ (Sodium Chloride) 100 mls @ 100 mls/hr IV Q12HR [facility] Stop: 12/09/16 11:30 Last Admin: 12/09/16 10:16 Dose: 100 mls/hr Sodium Chloride (Normal Saline) 1,000 mls @ 100 mls/hr IV ASDIRECTED [facility] Last Admin: 12/08/16 04:58 Dose: 100 mls/hr Magnesium Sulfate 2 gm/ Premix 50 mls @ 25 mls/hr IV ONETIME ONE Stop: 12/08/16 10:56 Last Admin: 12/08/16 11:04 Dose: 25 mls/hr Isosorbide Mononitrate (Imdur) 30 mg PO DAILY [facility] Losartan Potassium (Cozaar) 50 mg PO BID [facility] Losartan Potassium (Cozaar) 50 mg PO BID [facility] Last Admin: 12/09/16 01:48 Dose: Not Given Miscellaneous Information (Remove Patch) 1 ea TRDERM Q24H [facility] Last Admin: 12/06/16 20:00 Dose: Not Given Miscellaneous Information (Remove Patch) 1 ea TRDERM Q24H [facility] Oseltamivir Phosphate (Tamiflu) 30 mg PO BID [facility] Last Admin: 12/06/16 15:40 Dose: Not Given - Exam Quality Assessment: Reports: DVT prophylaxis General: Reports: alert, oriented, cooperative, no acute distress HEENT: Reports: Pupils equal, Pupils reactive, EOMI, Mucous membr. moist/pink Neck: Reports: supple Lungs: Reports: Rhonchi (bilat bases) Cardiovascular: Reports: regular rate, regular rhythm Abdomen: Reports: bowel sounds present, soft, no tenderness, no distension (Male) Exam: Deferred Rectal (Males) Exam: Deferred Extremities: Reports: no edema Skin: Reports: warm, dry, intact Neurological: Reports: no new focal deficit Psy/Mental Status: Reports: alert, normal affect, normal mood *Q Meaningful Use (DIS) - VTE *Q VTE Criteria *Q: - Stroke *Q Stroke Criteria *Q: - AMI *Q AMI Criteria *Q: <Riya Gallo - Last Filed: 12/10/16 20:26> Discharge Summary - Hospital Course Free Text/Narrative:: See above will be placed in SNF from home. - Discharge Diagnosis/Problem(s) (1) Acute hyperactive delirium due to another medical condition SNOMED Code(s): 8522646, 328567690, 524672284 ICD Code: F05 - DELIRIUM DUE TO KNOWN PHYSIOLOGICAL CONDITION Status: Acute (2) Adverse effects of medication SNOMED Code(s): 90249851 ICD Code: T88.7XXA - UNSP ADVERSE EFFECT OF DRUG OR MEDICAMENT, INIT ENCNTR Status: Acute (3) COPD (chronic obstructive pulmonary disease) SNOMED Code(s): 15788627 ICD Code: J44.9 - CHRONIC OBSTRUCTIVE PULMONARY DISEASE, UNSPECIFIED Status : Acute Qualifiers: COPD type: COPD with acute exacerbation Qualified Code(s): J44.1 - Chronic obstructive pulmonary disease with (acute) exacerbation (4) Congestive heart failure SNOMED Code(s): 21748752 ICD Code: I50.9 - HEART FAILURE, UNSPECIFIED Status: Acute Qualifiers: Congestive heart failure type: diastolic Congestive heart failure chronicity: acute on chronic Qualified Code(s): I50.33 - Acute on chronic diastolic (congestive) heart failure (5) Elevated troponin I level SNOMED Code(s): 497664693 ICD Code: R74.8 - ABNORMAL LEVELS OF OTHER SERUM ENZYMES Status: Acute (6) Hypoxia SNOMED Code(s): 172551245, 738909800 ICD Code: R09.02 - HYPOXEMIA Status: Acute (7) Influenza A SNOMED Code(s): 724863108 ICD Code: J10.1 - FLU DUE TO OTH IDENT INFLUENZA VIRUS W OTH RESP MANIFEST Status: Acute (8) NSTEMI (non-ST elevated myocardial infarction) SNOMED Code(s): 60513468 ICD Code: I21.4 - NON-ST ELEVATION (NSTEMI) MYOCARDIAL INFARCTION Status: Acute - Patient Summary/Data Consults: Consultations 12/06/16 14:13 Consult to Occupational Therapy [OT Evaluation and Treatment] [CONS] Routine Consult to Physical Therapy [PT Evaluation and Treatment] [CONS] Routine 12/06/16 14:14 Consult to Telecommunication Lines Repairer [CONS] Routine - Patient Data Vitals - Most Recent: Last Vital Signs Temp 37.0 C 12/09/16 07:20 Pulse 80 12/09/16 10:07 Resp 18 12/09/16 07:20 BP 169/77 H 12/09/16 10:08 Pulse Ox 96 12/09/16 07:20 WENDY Results - Last 24 hrs: Microbiology 12/07/16 03:33 Influenza Types A & B (PCR) - Final Nasal, Unspecified 12/07/16 01:30 Streptococcus pneumoniae Antigen (M - Final Urine Med Orders - Current: Current Medications Discontinued Medications Acetaminophen (Tylenol Solution) 650 mg PO Q6H PRN PRN Reason: Pain (moderate 4-6) Last Admin: 12/08/16 23:19 Dose: 650 mg Albuterol/Ipratropium (Duoneb 3.0-0.5 Mg/3 Ml) 3 ml NEB ONETIME ONE Stop: 12/06/16 10:01 Last Admin: 12/06/16 10:10 Dose: 3 ml Allopurinol (Zyloprim) 300 mg PO DAILY [facility] Last Admin: 12/09/16 10:08 Dose: 300 mg Aspirin (Halfprin) 81 mg PO DAILY [facility] Last Admin: 12/09/16 10:08 Dose: 81 mg Clopidogrel Bisulfate (Plavix) 300 mg PO ONETIME ONE Stop: 12/06/16 15:01 Last Admin: 12/06/16 16:23 Dose: 300 mg Clopidogrel Bisulfate (Plavix) 75 mg PO DAILY [facility] Last Admin: 12/09/16 10:08 Dose: 75 mg Docusate Sodium (Colace) 100 mg PO BID [facility] Last Admin: 12/09/16 10:06 Dose: 100 mg Doxycycline Hyclate (Vibramycin) 100 mg PO BID [facility] Enoxaparin Sodium (Lovenox) 30 mg SUBCUT DAILY [facility] Last Admin: 12/06/16 18:01 Dose: 30 mg Enoxaparin Sodium (Lovenox) 40 mg SUBCUT DAILY [facility] Last Admin: 12/09/16 10:11 Dose: 40 mg Furosemide (Lasix) 40 mg IVPUSH NOW ONE Stop: 12/06/16 11:12 Last Admin: 12/06/16 11:28 Dose: 40 mg Hydralazine HCl (Apresoline) 20 mg IVPUSH Q6H PRN PRN Reason: Hypertension Last Admin: 12/08/16 16:17 Dose: 20 mg Sodium Chloride (Normal Saline) 1,000 mls @ 100 mls/hr IV ASDIRECTED [facility] Last Infusion: 12/06/16 12:40 Dose: 50 mls/hr Levofloxacin/Dextrose 750 mg/ (Premix) 150 mls @ 100 mls/hr IV ONETIME ONE Stop: 12/06/16 14:10 Last Admin: 12/06/16 12:50 Dose: 100 mls/hr Doxycycline Hyclate 100 mg/ (Sodium Chloride) 100 mls @ 100 mls/hr IV Q12HR [facility] Stop: 12/09/16 11:30 Last Admin: 12/09/16 10:16 Dose: 100 mls/hr Sodium Chloride (Normal Saline) 1,000 mls @ 100 mls/hr IV ASDIRECTED [facility] Last Admin: 12/08/16 04:58 Dose: 100 mls/hr Magnesium Sulfate 2 gm/ Premix 50 mls @ 25 mls/hr IV ONETIME ONE Stop: 12/08/16 10:56 Last Admin: 12/08/16 11:04 Dose: 25 mls/hr Ibuprofen (Motrin) 600 mg PO Q8H PRN PRN Reason: Pain (severe 7-10) Last Admin: 12/08/16 17:51 Dose: 600 mg Isosorbide Mononitrate (Imdur) 30 mg PO DAILY [facility] Isosorbide Mononitrate (Imdur) 30 mg PO DAILY [facility] Last Admin: 12/09/16 10:08 Dose: 30 mg Losartan Potassium (Cozaar) 50 mg PO BID [facility] Losartan Potassium (Cozaar) 50 mg PO BID [facility] Last Admin: 12/09/16 01:48 Dose: Not Given Losartan Potassium (Cozaar) 50 mg PO BID [facility] Last Admin: 12/09/16 10:07 Dose: 50 mg Metoprolol Tartrate (Lopressor) 12.5 mg PO Q12HR [facility] Last Admin: 12/09/16 10:07 Dose: 12.5 mg Miscellaneous Information (Remove Patch) 1 ea TRDERM Q24H [facility] Last Admin: 12/06/16 20:00 Dose: Not Given Miscellaneous Information (Remove Patch) 1 ea TRDERM Q24H [facility] Miscellaneous Information (Remove Patch) 1 ea TRDERM Q24H [facility] Last Admin: 12/09/16 10:10 Dose: 1 ea Nicotine (Habitrol) 21 mg TRDERM DAILY [facility] Last Admin: 12/09/16 10:10 Dose: 21 mg Oseltamivir Phosphate (Tamiflu) 30 mg PO BID [facility] Last Admin: 12/06/16 15:40 Dose: Not Given Simvastatin (Zocor) 5 mg PO BEDTIME [facility] Last Admin: 12/08/16 20:50 Dose: 5 mg Temazepam (Restoril) 7.5 mg PO BEDTIME PRN PRN Reason: Insomnia Last Admin: 12/08/16 23:20 Dose: 7.5 mg *Q Meaningful Use (DIS) - VTE *Q VTE Criteria *Q: - Stroke *Q Stroke Criteria *Q: - AMI *Q AMI Criteria *Q:
[2016-12-09] MEDS ORDERED: Doxycycline 100 MG Cap PO SCH (21:00)
== END 2016-12-09 14:43 | disposition home or self-care (01) | DRG 280 ==
LOC: JD.ED 09:00 → JD.MS 12:35
PROVIDERS: ADMIT Internal Medicine Cardiovascular Disease; ATTEND Internal Medicine Cardiovascular Disease
DX: I21.4 Non-ST elevation (NSTEMI) myocardial infarction (principal); J18.9 Pneumonia, unspecified organism; I50.43 Acute on chronic combined systolic (congestive) and diastolic (congestive) heart failure; J44.0 Chronic obstructive pulmonary disease with (acute) lower respiratory infection; J44.1 Chronic obstructive pulmonary disease with (acute) exacerbation; I25.810 Atherosclerosis of coronary artery bypass graft(s) without angina pectoris; F05 Delirium due to known physiological condition; R44.3 Hallucinations, unspecified; I11.0 Hypertensive heart disease with heart failure; R09.02 Hypoxemia; F03.90 Unspecified dementia, unspecified severity, without behavioral disturbance, psychotic disturbance, mood disturbance, and anxiety; E78.00 Pure hypercholesterolemia, unspecified; I25.2 Old myocardial infarction; I10 Essential (primary) hypertension; K21.9 Gastro-esophageal reflux disease without esophagitis; G89.29 Other chronic pain; M54.9 Dorsalgia, unspecified; E11.9 Type 2 diabetes mellitus without complications; Z95.1 Presence of aortocoronary bypass graft; F17.200 Nicotine dependence, unspecified, uncomplicated; Z96.659 Presence of unspecified artificial knee joint; Z79.82 Long term (current) use of aspirin; Z79.899 Other long term (current) drug therapy; Z88.6 Allergy status to analgesic agent; T88.7XXA Unspecified adverse effect of drug or medicament, initial encounter; J10.1 Influenza due to other identified influenza virus with other respiratory manifestations
CPT/HCPCS: 36415; 36600; 71010; 71010-26; 71020; 71020-26; 72100; 72100-26; 80048; 80053; 80061; 81001; 82553; 82803; 83735; 83880; 84484; 85025; 86140; 86738; 87502; 87503; 87899; 93005; 93306; 94664; 94760; 96361; 96365; 96374; 96375; 97161-GP; 97165-GO; 99285; 99285-25; A9270-GY; J0360; J1650; J1940; J1956; J3475; J7030; J7040